=== PATIENT | female | born 1970 | race Caucasian/White ===

== ENCOUNTER → 2021-08-30 08:37 | Outpatient (CLI) | payer BC, SELFPAY ==
--- NOTE | ~2021-08-30 | MM_ITS ---
EXAMINATION: MM screening jo-ann BI w kellee HISTORY: Screening mammogram, family history of breast cancer in her sister. TECHNIQUE: Craniocaudal and mediolateral oblique 3-D tomosynthesis images were obtained and synthetic 2-D images were generated. CAD analysis was submitted and interpreted. COMPARISON: 03/31/2019, 02/01/2018, 12/29/2016 BREAST PARENCHYMAL COMPOSITION: The breasts are heterogeneously dense, which may obscure small masses . FINDINGS: Scattered benign-appearing calcifications are present. There is no evidence of suspicious m ass, calcification, or architectural distortion to suggest malignancy in either breast. There has bee n no suspicious interval change. IMPRESSION: 1. No mammographic evidence of malignancy. 2. Recommend routine screening mammography in one year. BI-RADS Category 2: Benign finding(s). Reviewed, dictated and finalized at location A.
== END ==
PROVIDERS: Visit Provider Obstetrics & Gynecology
DX: Z12.31 Encounter for screening mammogram for malignant neoplasm of breast (principal)
CPT/HCPCS: 77063; 77067

== ENCOUNTER 2022-08-06 19:11 | Emergency (ER) | payer BC, SELFPAY ==
--- NOTE | 2022-08-06 19:12 | ED.URI ---
HPI - URI/Sore Throat General Stated Complaint: Fatique Time Seen by Provider: 08/06/22 19:12 Source: patient Mode of arrival: ambulatory Limitations: no limitations History of Present Illness HPI Narrative: Ms. Marshall is a 51-year-old female patient presenting to the clinic today with complaints of fatigue x2 weeks. She reports she contacted her PCP today and they recommend she come into the urgent care to be evaluated. She states that she did not at home COVID test today and it was negative. She denies any fever or chills. She denies using any recreational drugs. She denies any new medications that she is taken. She denies having heavy menses although her periods are irregular. She denies any sore throat, chest pain, or shortness of breath. She denies any nausea vomiting or diarrhea. No history of any Leonidas's disease, thyroid disease, or vitamin deficiencies. She reports she is a diabetic and uses an insulin pump. Her sugars have been ranging 150s 160s. Related Data Home Medications Medication Instructions Recorded Confirmed insulin aspart U-100 100 unit/mL 1 unit subcut DIRECTED 08/06/22 08/06/22 subcutaneous solution (Novolog U-100 Insulin aspart) liraglutide 0.6 mg/0.1 mL (18 mg/3 0.6 mg subcut DIRECTED 08/06/22 08/06/22 mL) subcutaneous pen injector (Victoza 3-Javad) metformin 500 mg tablet 500 mg PO BID 08/06/22 08/06/22 pravastatin 10 mg tablet 10 mg PO DAILY 08/06/22 08/06/22 sertraline 100 mg tablet 100 mg PO DAILY 08/06/22 08/06/22 Allergies Allergy/AdvReac Type Severity Reaction Status Date / Time Penicillins Allergy Severe HIVES Verified 08/06/22 19:13 morphine AdvReac Severe FATIGUE,ACHEY, Verified 08/06/22 19:13 LETHARGIC codeine AdvReac Unknown N/V Verified 08/06/22 19:13 Review of Systems Review of Systems: Pertinent positives per HPI. Patient denies any fever, chills, rash, headache, visual changes, dizziness, cough, runny nose, sore throat, shortness of breath, chest pain, palpitations, nausea, vomiting, diarrhea, constipation, abdominal pain, or any urinary issues. PMFSH Comments At the time of my signature, I reviewed and agree with the nursing past medical, surgical, social, and family history. There is no relevant family history pertinent to the patient complaint. Exam Narrative: General: Well-developed, obese, in no apparent distress Head: Normocephalic, atraumatic Eyes: Pupils equally round and reactive to light bilaterally, EOM intact, sclera and conjunctive clear, no discharge, lids normal Ears: TMs intact and clear, ear canals clear, no drainage, grossly hearing normal. Nose: Nares patent, no discharge, no inflammation, no sinus tenderness. Mouth: Oropharynx without lesions or masses, good dentition, MMM. Neck: Supple, trachea midline, no enlargement of anterior or posterior cervical nodes, no thyroid masses or goiter palpable. No JVD Cardio: Regular rate and rhythm, s1 and s2 normal, no murmur appreciated. Resp: Clear to auscultation bilaterally anteriorly and posteriorly, no rhonchi, rales, wheezing or rubs Extremities: No deformity, 1+ pitting edema in the lower extremities bilaterally, no cyanosis, capillary refill less than 2 seconds, peripheral pulses palpable and strong. Integumentary: [place], warm, and dry, intact without lesion, no rashes. Course Course Emergency Course: Portions of this record may have been created with voice recognition software. Level of Care: Express Care Visit Vital Signs Vital signs: Vital signs reviewed MDM - URI/Sore Throat MDM Narrative Medical decision making narrative: At the time of visit patient is resting comfortably on the exam table. Patient had done at home COVID test today and it was negative. I do not see any sign of infection and her symptoms of been ongoing for 2 weeks so I do not see a reason to do strep testing or mono testing at this time. Recommend follow-up with her PCP tomorrow or call for o
[2022-08-06 19:23] VITALS: BP 136/67; PULSE 85; RESP 16; TEMP 37.6; O2SAT 99
== END 2022-08-06 19:48 | disposition home or self-care (01) ==
LOC: EXPCOLL 19:16
PROVIDERS: Emergency Provider Nurse Practitioner Family
DX: R53.83 Other fatigue (principal); E11.9 Type 2 diabetes mellitus without complications; Z79.4 Long term (current) use of insulin
CPT/HCPCS: 99211; G0463

== ENCOUNTER 2022-11-24 10:34 | Outpatient (CLI) | payer BC, SELFPAY ==
--- NOTE | ~2022-11-24 | MM_ITS ---
EXAMINATION: MM screening jo-ann BI w kellee HISTORY: Screening mammogram TECHNIQUE: Craniocaudal and mediolateral oblique 3-D tomosynthesis images were obtained and synthetic 2-D images were generated. CAD analysis was submitted and interpreted. COMPARISON: 08/30/2021, 03/31/2019, 02/01/2018 bilateral screening mammogram examinations BREAST PARENCHYMAL COMPOSITION: The breasts are heterogeneously dense, which may obscure small masses . FINDINGS: Scattered bilateral benign calcifications. There is no evidence of suspicious mass, calcifi cation, or architectural distortion to suggest malignancy in either breast. There has been no suspici ous interval change. IMPRESSION: 1. No mammographic evidence of malignancy. 2. Recommend routine screening mammography in one year. BI-RADS Category 2: Benign finding(s). Reviewed, dictated and finalized at location A. [employer]
== END 2022-11-24 10:35 | disposition home or self-care (01) ==
PROVIDERS: Visit Provider Physician Assistant
DX: Z12.31 Encounter for screening mammogram for malignant neoplasm of breast (principal)
CPT/HCPCS: 77063; 77067

== ENCOUNTER 2023-01-30 12:51 | Emergency (ER) | payer BC, SELFPAY ==
[2023-01-30 13:01] VITALS: BP 143/59; PULSE 84; RESP 16; TEMP 36.9; O2SAT 98
--- NOTE | 2023-01-30 13:35 | ED.URI ---
HPI - URI/Sore Throat General Chief Complaint: Upper Respiratory Infection Stated Complaint: Sinus Time Seen by Provider: 01/30/23 13:10 Source: patient Mode of arrival: ambulatory Limitations: no limitations History of Present Illness HPI Narrative: Twyla is a 52-year-old female patient presenting to clinic today with complaints of sinus congestion and cough times 2 weeks. She reports that she has had a lot of sinus pressure and postnasal drip. She denies any fever or chills but has had some headaches with constant coughing. She has been taking [id number] medications as well as she has taken some prednisolone 20 mg daily for 5 days without relief MD elicited complaint: cough, nasal congestion and sinus pain Related Data Home Medications Medication Instructions Recorded Confirmed insulin aspart U-100 100 unit/mL 1 unit subcut DIRECTED 08/06/22 01/30/23 subcutaneous solution (Novolog U-100 Insulin aspart) liraglutide 0.6 mg/0.1 mL (18 mg/3 0.6 mg subcut DIRECTED 08/06/22 01/30/23 mL) subcutaneous pen injector (Victoza 3-Javad) metformin 500 mg tablet 500 mg PO BID 08/06/22 01/30/23 pravastatin 10 mg tablet 10 mg PO DAILY 08/06/22 01/30/23 sertraline 100 mg tablet 100 mg PO DAILY 08/06/22 01/30/23 Allergies Allergy/AdvReac Type Severity Reaction Status Date / Time Penicillins Allergy Severe HIVES Verified 01/30/23 13:19 morphine AdvReac Severe FATIGUE,ACHEY, Verified 01/30/23 13:19 LETHARGIC codeine AdvReac Unknown N/V Verified 01/30/23 13:19 Review of Systems Review of Systems: Pertinent positives per HPI. Patient denies any fever, chills, rash, headache, visual changes, dizziness, cough, shortness of breath, chest pain, palpitations, nausea, vomiting, diarrhea, constipation, abdominal pain, or any urinary issues. PMFSH Comments At the time of my signature, I reviewed and agree with the nursing past medical, surgical, social, and family history. There is no relevant family history pertinent to the patient complaint. Exam Narrative: General: Well-developed, well nourished, in no apparent distress Head: Normocephalic, atraumatic Eyes: Pupils equally round and reactive to light bilaterally, EOM intact, sclera and conjunctive clear, no discharge, lids normal Ears: TMs intact, bulging, dull, ear canals clear, no drainage, grossly hearing normal. Nose: Nares patent, green nasal discharge, severe inflammation, maxillary and frontal sinus tenderness. Mouth: Oral pharynx without lesions or masses, good dentition, MMM. Postnasal drip Neck: Supple, trachea midline, no enlargement of anterior or posterior cervical nodes, no thyroid masses or goiter palpable. Cardio: Regular rate and rhythm, s1 and s2 normal, no murmur appreciated. Resp: Clear to auscultation bilaterally, no rhonchi, rales, wheezing or rubs Course Course Emergency Course: Portions of this record may have been created with voice recognition software. Level of Care: Express Care Visit Vital Signs Vital signs: Vital Signs Temperature 36.9 C 01/30/23 13:01 Pulse Rate 84 01/30/23 13:01 Respiratory Rate 16 01/30/23 13:01 Blood Pressure 143/59 H 01/30/23 13:01 Pulse Oximetry 98 01/30/23 13:01 Oxygen Delivery Room Air 01/30/23 13:01 Temperature 36.9 C 01/30/23 13:01 Pulse Rate 84 01/30/23 13:01 Respiratory Rate 16 01/30/23 13:01 Blood Pressure 143/59 H 01/30/23 13:01 Pulse Oximetry 98 01/30/23 13:01 Oxygen Delivery Room Air 01/30/23 13:01 Vital signs reviewed MDM - URI/Sore Throat MDM Narrative Medical decision making narrative: At the time of visit patient is resting comfortably on the exam table. I suspect patient has acute bacterial rhinosinusitis with paste nasal drip and eustachian tube dysfunction. Prescription for prednisone, Tessalon Perles, and doxycycline was sent to the pharmacy. Supportive measures were discussed with the patient she voiced understanding discharg
== END 2023-01-30 13:40 | disposition home or self-care (01) ==
PROVIDERS: Emergency Provider Nurse Practitioner Family
DX: J01.90 Acute sinusitis, unspecified (principal); B96.89 Other specified bacterial agents as the cause of diseases classified elsewhere; Z79.4 Long term (current) use of insulin
CPT/HCPCS: 99213; G0463

== ENCOUNTER 2024-03-21 09:10 | Emergency (ER) | payer BC, SELFPAY ==
--- NOTE | ~2024-03-21 | XR_ITS ---
EXAMINATION: XR nasal bones min 3V DATE: 03/21/2024 09:50 INDICATION: Nose pain. Fall. TECHNIQUE: 3 views of the nasal bones were obtained. COMPARISON: None. FINDINGS: There is leftward deviation of the nasal septum. No fracture. IMPRESSION: 1. No fracture. Reviewed, dictated and finalized at location E. IMPRESSION: 1. No fracture.
[2024-03-21 09:19] VITALS: BP 124/54; PULSE 83; RESP 16; TEMP 36.4; O2SAT 99
--- NOTE | 2024-03-21 09:23 | ED.HEATRA ---
HPI - Head Injury General Chief complaint: Unspecified Stated complaint: Nose Pain Time Seen by Provider: 03/21/24 09:12 Source: patient Mode of arrival: ambulatory Limitations: no limitations History of Present Illness HPI Narrative: Twyla is a 53-year-old female patient presenting to the clinic today with complaints of nasal bone pain. She reports she fell on Wednesday over a baby gate hitting her lip and nose on a he cat litter tub. Has bruising and mild swelling to the upper lip. Tenderness over the nasal bridge and septum. States she did have epistaxis at the time of the injury however that has discontinued. Related Data Home Medications Medication Instructions Recorded Confirmed insulin aspart U-100 100 unit/mL 1 unit subcut DIRECTED 08/06/22 01/30/23 subcutaneous solution (Novolog U-100 Insulin aspart) liraglutide 0.6 mg/0.1 mL (18 mg/3 0.6 mg subcut DIRECTED 08/06/22 01/30/23 mL) subcutaneous pen injector (Victoza 3-Javad) metformin 500 mg tablet 500 mg PO BID 08/06/22 01/30/23 pravastatin 10 mg tablet 10 mg PO DAILY 08/06/22 01/30/23 sertraline 100 mg tablet 100 mg PO DAILY 08/06/22 01/30/23 Allergies Allergy/AdvReac Type Severity Reaction Status Date / Time Penicillins Allergy Severe HIVES Verified 01/30/23 13:19 morphine AdvReac Severe FATIGUE,ACHEY, Verified 01/30/23 13:19 LETHARGIC codeine AdvReac Unknown N/V Verified 01/30/23 13:19 Review of Systems Review of Systems: Pertinent positives per HPI. Patient denies any fever, chills, rash, headache, visual changes, dizziness, cough, runny nose, sore throat, shortness of breath, chest pain, palpitations, nausea, vomiting, diarrhea, constipation, abdominal pain, or any urinary issues. PMFSH Comments At the time of my signature, I reviewed and agree with the nursing past medical, surgical, social, and family history. There is no relevant family history pertinent to the patient complaint. Exam Narrative: General: Well-developed, well nourished, in no apparent distress Head: Normocephalic, atraumatic Eyes: Pupils equally round and reactive to light bilaterally, EOM intact, sclera and conjunctive clear, no discharge, lids normal Ears: TMs intact and clear, ear canals clear, no drainage, grossly hearing normal. Nose: Nares patent, no discharge, mild inflammation, no epistaxis visualized, tenderness to palpation over the nasal bridge and septum, no visualized septal hematoma. Mouth: Oropharynx without lesions or masses, good dentition, MMM. Old bruising to the upper lip Neck: Supple, trachea midline, no enlargement of anterior or posterior cervical nodes, no thyroid masses or goiter palpable. Cardio: Regular rate and rhythm, s1 and s2 normal, no murmur appreciated. Resp: Clear to auscultation bilaterally anteriorly and posteriorly, no rhonchi, rales, wheezing or rubs Course Course Emergency Course: Portions of this record may have been created with voice recognition software. Level of Care: Express Care Visit Vital Signs Vital signs: Vital Signs Temperature 36.4 C 03/21/24 09:19 Pulse Rate 83 03/21/24 09:19 Respiratory Rate 16 03/21/24 09:19 Blood Pressure 124/54 L 03/21/24 09:19 Pulse Oximetry 99 03/21/24 09:19 Oxygen Delivery Room Air 03/21/24 09:19 Temperature 36.4 C 03/21/24 09:19 Pulse Rate 83 03/21/24 09:19 Respiratory Rate 16 03/21/24 09:19 Blood Pressure 124/54 L 03/21/24 09:19 Pulse Oximetry 99 03/21/24 09:19 Oxygen Delivery Room Air 03/21/24 09:19 Vital signs reviewed MDM - Head Injury MDM Narrative Medical decision making narrative: At the time of visit patient is resting comfortably on the exam table. Patient appears to be nontoxic. Diagnostics: Nasal bone x-rays performed and were negative for any sign of fracture or malalignment.. Plan: Supportive measures were discussed with the patient and they voiced understanding discharge instructions and a
== END 2024-03-21 10:05 | disposition home or self-care (01) ==
PROVIDERS: Emergency Provider Nurse Practitioner Family; PCP Family Medicine
DX: S00.531A Contusion of lip, initial encounter (principal); S00.33XA Contusion of nose, initial encounter; W18.09XA Striking against other object with subsequent fall, initial encounter; E78.00 Pure hypercholesterolemia, unspecified; E11.9 Type 2 diabetes mellitus without complications; Z79.4 Long term (current) use of insulin; Z96.41 Presence of insulin pump (external) (internal); Z79.84 Long term (current) use of oral hypoglycemic drugs; F32.A Depression, unspecified
CPT/HCPCS: 70160; 99213; G0463

== ENCOUNTER 2025-03-13 08:29 | Outpatient (CLI) | payer BC, SELFPAY ==
--- NOTE | ~2025-03-13 | MM_ITS ---
EXAMINATION: MM screening jo-ann BI w kellee HISTORY: Screening TECHNIQUE: Craniocaudal and mediolateral oblique 3-D tomosynthesis images were obtained and synthetic 2-D images were generated. CAD analysis was submitted and interpreted. COMPARISON: Comparison to multiple prior studies sequentially, with oldest reviewed study dated 12/09. BREAST PARENCHYMAL COMPOSITION: Dense: The breasts are heterogeneously dense, which may obscure small masses FINDINGS: There is no evidence of suspicious mass, calcification, or architectural distortion to sugg est malignancy in either breast. There has been no suspicious interval change. IMPRESSION: 1. No mammographic evidence of malignancy. 2. Recommend routine screening mammography in one year. BI-RADS Category 1: Negative Reviewed, dictated and finalized at location B.
--- OUTSIDE RECORDS SUMMARY | 2025-03-13 08:46 | XMS_ITS | Clinical Summary ---
Author Organization [facility] Scientific Revenue Address [address] [place] [address] Care Team Providers Care Hydrologic Modeler Name Role Phone Orlando Park MD Primary Care Provider [phone] Source Comments [facility] Affiliates and Associated Physician Practices is amultiple site organization consisting of ambulatory clinics and hospital sitesin [place], [place], [place] and [place]. This disclosure is being madepursuant to the Care Everywhere program and may not contain all information available regarding this patient. Last updated 18.[facility] [employer] Allergies Active Allergy Reactions Criticality Noted Date Comments Penicillins 01/04/2018 Medications * Be aware that medications may not be up to date on this document. Alwaysverify current medications with the patient. insulin glargine (LANTUS) vial Inject subcutaneously at bedtime Active insulin lispro (HUMALOG) 100 UNIT/ML vial Active estradiol (ESTRACE) 0.5 MG tablet Take 0.5 mg by mouth once daily Active medroxyPROGEST ERone (PROVERA) 2.5 MG tablet Take 2.5 mg by mouth once daily Active Glucosamine-Ch ondroitin (GLUCOSAMINE CHONDR COMPLEX PO) Active Social History Tobacco Use Types Packs/Day Years Used Date Smoking Tobacco: Never Smokeless Tobacco: Never Alcohol Use Standard Drinks/Week Comments Yes 0 (1 standard drink = 0.6 oz pur e alcohol) Comments No Sex and Gender Information Value Date Recorded Sex Assigned at Not on file Legal Sex Female 8:05 AM SPORTS RECRUITER Gender Identity Not on file Sexual Orientation Not on file Last Filed Vital Signs Vital Sign Reading Time Taken Comments Blood Pressure 118/72 01/04/2018 10:15 AM SPORTS RECRUITER Pulse 90 01/04/2018 10:15 AM SPORTS RECRUITER Temperature - - Respiratory Rate 15 01/04/2018 10:15 AM SPORTS RECRUITER Oxygen Saturation 94% 01/04/2018 10:15 AM SPORTS RECRUITER Inhaled Oxygen Concentration - - Weight 95.3 kg (210 lb) 01/04/2018 9:03 AM SPORTS RECRUITER Height 162.6 cm (5' 4 ) 01/04/2018 9:03 AM SPORTS RECRUITER Body Mass Index 36.05 01/04/2018 9:03 AM SPORTS RECRUITER Plan of Treatment Health Maintenance Due Date Last Done Comments COLOGUARD (AGES 45-75) - COL ON CA SCREENING 1972 CT COLONOGRAPHY - COLON CA SCREENING 1972 FIT - COLON CA SCREENING 1972 FLEX SIG - COLON CA SCREENING 1972 LIPID TESTING 1972 MAMMOGRAM 1972 HIV SCREENING 1987 HEPATITIS C SCREENING 10/04/1990 DTAP/TDAP/TD VACCINES (1 - Tdap) 1991 HEPATITIS B VACCINE (1 of 3 - 19+ 3-dose series) 1991 PNEUMOCOCCAL VACCINE 50+ (1 of 1 - PCV) 2022 ZOSTER VACCINE (1 of 2) 2022 COVID-19 VACCINE ( - 2023-2 5 season) 2024 DEPRESSION SCREENING 11/29/2024 INFLUENZA VACCINE (Season Ended) 2025 COLON MONITORING 01/04/2028 01/04/2018, 01/04/2018 COLONOSCOPY - COLON CA SCREENING 01/04/2028 01/04/2018, 01/04/2018 Colorectal Cancer Screening 01/04/2028 HIB VACCINE Aged Out No longer eligi ble based on patient's age to complete this topic HPV VACCINE Aged Out No longer eligi ble based on patient's age to complete this topic MENINGOCOCCAL (Group B) VACCINE SHARED DECISION-MAKING Aged Out No longer eligible based on patient's age to complete this topic MENINGOCOCCAL GROUPS A/C/Y/W VACCINE Aged Out No longer eligible b ased on patient's age to complete this topic Procedures Procedure Name Priority Date/Time Associated Diagnosis Comments ENDOSCOPY, COLON, SCREENING Routine 01/04/2018 9:15 AM SPORTS RECRUITER from Last 3 Months or Most Recently Relevant to Health Maintenance Results * ENDOSCOPY, COLON, SCREENING (01/04/2018 9:15 AM SPORTS RECRUITER) Report Endoscopy POC _ Patient Name: Twyla Marshall Procedure Date: 01/04/2018 9:15 AM Date of : 1970 Admit Type: Outpatient Age: 47 Gender: Female Attending MD: Felipe Sullivan MD _ Procedure: Colonoscopy Indications: Rectal bleeding Providers: Felipe Sullivan MD (Doctor), Heather Torres RN, Minerva Lion Referring MD: Orlando Park MD (Referring MD) Medicines: Midazolam 7 mg IV, Fentanyl 100 micrograms IV Complications: No immediate complications. _ Procedure: Pre-Anesthesia Assessment: - Prior to the procedure, a History and Physical was performed, and patient medications and allergies were reviewed. The patient is competent. The risks and benefits of the procedure and the sedation options and risks were discussed with the patient. All questions were answered and informed consent was obtained. Patient identification and proposed procedure were verified by the physician and the nurse in the procedure room. Mental Status Examination: alert and oriented. Airway Examination: normal oropharyngeal airway and neck mobility. Respiratory Examination: clear to auscultation. CV Examination: normal. Prophylactic Antibiotics: The patient does not require prophylactic antibiotics. Prior Anticoagulants: The patient has taken no previous anticoagulant or antiplatelet agents. ASA Grade Assessment: I - A normal, healthy patient. After reviewing the risks and benefits, the patient was deemed in satisfactory condition to undergo the procedure. The anesthesia plan was to use moderate sedation / analgesia (conscious sedation). Immediately prior to administration of medications, the patient was re-assessed for adequacy to receive sedatives. The heart rate, respiratory rate, oxygen saturations, blood pressure, adequacy of pulmonary ventilation, and response to care were monitored throughout the procedure. The physical status of the patient was re-assessed after the procedure. After I obtained informed consent, the scope was passed under direct vision. Throughout the procedure, the patient's blood pressure, pulse, and oxygen saturations were monitored continuously. The Colonoscope was introduced through the anus and advanced to the cecum, identified by appendiceal orifice and ileocecal valve. The colonoscopy was performed without difficulty. The patient tolerated the procedure well. The quality of the bowel preparation was good. Impression: - Non-bleeding internal hemorrhoids. - The examination was otherwise normal on direct and retroflexion views. - No specimens collected. Findings: The perianal and digital rectal examinations were normal. Pertinent negatives include normal sphincter tone. Non-bleeding internal hemorrhoids were found during retroflexion. The hemorrhoids were moderate. The exam was otherwise without abnormality on direct and retroflexion views. _ Recommendation: - Discharge patient to home (ambulatory). - Use fiber, for example Citrucel, Fibercon, Konsyl or Metamucil. - Preparation H suppository: Insert rectally daily for 1 week. Procedure Code(s): --- Professional --- 84963, Colonoscopy, flexible; diagnostic, including collection of specimen(s) by brushing or washing, when performed (separate procedure) --- Technical --- 03061, Colonoscopy, flexible; diagnostic, including collection of specimen(s) by brushing or washing, when performed (separate procedure) Diagnosis Code(s): --- Professional --- K64.8, Other hemorrhoids K62.5, Hemorrhage of anus and rectum --- Technical --- K64.8, Other hemorrhoids K62.5, Hemorrhage of anus and rectum CPT copyright 2015 [employer]. All rights reserved. The codes documented in this report are preliminary and upon chalk cutter review may be revised to meet current compliance requirements. Felipe Sullivan MD 01/04/2018 9:51:35 AM This report has been signed electronically. Number of Addenda: 0 Note Initiated On: 01/04/2018 9:15 AM [facility] ENDOSCOPY 01/04/2018 9:15 AM SPORTS RECRUITER Felipe Sullivan MD GI PROCEDURE ORDERABLES Edited Result - Final [facility] ENDOSCOPY from Last 3 Months or Most Recently Relevant to Health Maintenance Insurance Care Teams Hydrologic Modeler Relationship Specialty Start Date End Date Orlando Park MD PCP - General Internal Medicine 01/04/18
--- OUTSIDE RECORDS SUMMARY | 2025-03-13 08:47 | XMS_ITS | Referral Summary ---
Author Organization [facility] Address [address] [place] [address] Care Team Providers Care Folder And Notcher Name Role Phone Filippo Rosales MD Unavailable [phone] Nathalie Fitzgerald MD Unavailable [phone] Khanh Ramsey MD Primary Care Provider Encounters Date Type Department Care Team Description 01/30/2025 9:00 AM REINSURANCE CLAIM ANALYST Telemedicine [facility] Endocrinology Metabolism and Lipid [address] [facility] [address] [place] [address] [place] [address] Nathalie Fitzgerald MD Type 1 diabetes mellitus without complication (HCC) (Primary Dx); Screening for hypothyroidism; Encounter for vitamin deficiency screening; Screening for hyperlipidemia; Screening for deficiency anemia; Diabetes mellitus with features of insulin resistance (HCC); Class 1 obesity due to excess calories with serious comorbidity and body mass index (BMI) of 32.0 to 32.9 in adult; Type 1 diabetes mellitus with hyperglycemia (HCC); Vitamin D deficiency; Type 2 diabetes mellitus without complication, with long-term current use of insulin (HCC); Mixed hyperlipidemia from Last 3 Months Allergies Active Allergy Reactions Criticality Noted Date Comments Codeine Nausea & Vomiting Low Morphine Hallucinations Medium Penicillin Hives Medium 09/23/2023 Penicillins Hives Medium Medications glucosamine-lona droitin 500-400 mg capsule Take by mouth. Acti ve ONETOUCH DELICA LANCETS 33 gauge misc 8 Active potassium gluconate 595 mg (99 mg) tablet extended release Take by mouth 4 (four) times a day Active magnesium gluconate (MAGONATE) 27.5 mg magne- sium (500 mg) tabletIndication s:hypomagnesemia Take 1 tablet (500 mg total) by mouth daily Active pen needle, diabetic 31 gauge x 5/16 needleIndication s:Type 1 diabetes mellitus without complication (HCC) USE TO INJECT INSULIN 4 TIMES PER DAY 100 each 14 0 Active blood-glucose meter kit One Touch Verio Reflect - Use to test blood sugar as directed. 1 each 0 Active aspirin 81 mg enteric coated tablet Take 1 tablet (81 mg total) by mouth daily 30 tablet 11 1 Active naproxen (NAPROSYN) 500 mg tablet Take 1 tablet (500 mg total) by mouth 2 (two) times a day as needed (pain or swelling) 20 tablet 1 Active pen needle, diabetic 31 gauge x 3/16 needle Use to inject Victoza 1 time per day. 100 each 2 2 Active metFORMIN (GLUCOPHAGE) 500 mg tabletIndication s:Type 1 diabetes mellitus without complication (HCC) TAKE 2 TABLETS BY MOUTH TWICE A DAY WITH MEALS 360 tablet 3 4 Active albuterol 2.5 mg /3 mL (0.083 %) nebulizer solution INHALE 3 ML BY NEBULIZATION EVERY 6 HOURS NEEDED FOR WHEEZING 75 mL 4 Active insulin aspart (NovoLOG) 100 unit/mL vial for injectionIndicat ions:Type 1 diabetes mellitus without complication (HCC) INJECT UP TO 110 UNITS PER DAY VIA INSULIN PUMP DIRECTED 100 mL 3 4 Active atomoxetine (STRATTERA) 80 mg capsule TAKE 1 CAPSULE BY MOUTH EVERY DAY IN THE MORNING FOR 90 DAYS Active fluticasone propionate (FLONASE) 50 mcg/actuation nasal spray SPRAY 2 SPRAYS INTO EACH NOSTRIL DAILY -AFTER 1 WEEK MAY USE 1-2 SPRAY INTO EACH NOSTRIL DAILY Active vitamin E 400 unit capsule Take 1 capsule every day by oral route. 4 Active albuterol HFA (PROVENTIL HFA,VENTOLIN HFA,PROAIR HFA) 90 mcg/actuation inhalerIndicatio ns:Acute Asthma Attack Inhale 2 puffs every 4 (four) hours as needed for shortness of breath 6.7 each 1 4 Active sertraline (ZOLOFT) 100 mg tabletIndication s:NASIR (generalized anxiety disorder),Mild episode of recurrent major depressive disorder Take 1 tablet (100 mg total) by mouth daily 90 tablet 3 4 Active Dexcom G7 Sensor deviceIndication s:Type 1 diabetes mellitus without complication (HCC) Dexcom G7. Change every 10 days 9 each 3 4 Active propranoloL (INDERAL) 10 mg tablet 4 Active estradioL (Estrace) 0.01 % (0.1 mg/gram) vaginal cream Insert one gram vaginally 2 times per week (such as Wednesday/) 42.5 g 1 4 Active glucagon (Baqsimi) 3 mg/actuation spray,non-aeroso l Administer 1 spray (3 mg total) into one nostril as needed (for use in case of emergency for hypoglycemia) 1 each 2 4 Active tirzepatide (Mounjaro) 12.5 mg/0.5 mL pen injectorIndicati ons:type 2 diabetes mellitus Inject 12.5 mg under the skin once a week 2 mL 11 4 Active pravastatin (PRAVACHOL) 20 mg tabletIndication s:Mixed hyperlipidemia,T ype 1 diabetes mellitus without complication (HCC) Take 1 tablet (20 mg total) by mouth daily 90 tablet 3 4 Active trospium XR (SANCTURA XR) 60 mg capsule,extended release 24hrIndications: Mixed stress and urge urinary incontinence TAKE 1 CAPSULE BY MOUTH EVERY DAY 90 capsule 5 Active Active Problems Problem Noted Date Diagnosed Date Incomplete uterovaginal prolapse 08/18/2024 Mixed stress and urge urinary incontinence 08/18 Rectocele 08/18/2024 Pelvic floor dysfunction in female 08/18/2024 Cystocele, midline 08/18/2024 Attention deficit hyperactiv ity disorder (ADHD), combined type 08/16/2024 Overview (08/27/2024): - managed via psychiatry - online [facility] Assessment & Plan (08/16/2024 9:42 AM CDT): - chronic condition, well controlled - diagnosed in adulthood - managed via psychiatry - online [facility] - currently strattera 80 mg daily - continue management per psychiatry Type 2 diabetes mellitus wit hout complication, with long-term current use of insulin 08/16/2024 Type 1 diabetes mellitus with hyperglycemia 01/28 Diabetes mellitus with features of insulin resis tance 04/18/2023 Assessment & Plan (04/18/2023 6:27 PM CDT): At her last visit, we attempted to start Twyla on Mounjaro, given her prior failure of victoza, trulicity and ozempic (nausea, abdominal bloating, persistent insulin resistance with high insulin requirements of 104.86 units/day, on average, which is equivalent to >1 unit/kg/day. Would benefit from Mounjaro to help reduce insulin requirements and help with glycemic excursions. Mild persistent asthma without complication 01/2023 Assessment & Plan (08/16/2024 9:54 AM CDT): - chronic condition, stable status - currently on Albutreol inhaler PRN - triggers are allergies - uses flonase nasal spray - continue current management Assessment & Plan (09/22/2023 12:54 PM CDT): Continue with albuterol inhaler Assessment & Plan (12/01/2022 1:55 PM REINSURANCE CLAIM ANALYST): Continue with albuterol inhaler alf current use of insulin 11/03/2022 Assessment & Plan (01/23/2023 4:03 PM REINSURANCE CLAIM ANALYST): Requires close clinical follow up for BG review and insulin titration Abnormal stress echo 01/16/2021 Overview (01/16/2021): Added automatically from request for surgery [id number] Insulin pump in place 01/08/2021 Assessment & Plan (01/23/2023 4:02 PM REINSURANCE CLAIM ANALYST): Has good working knowledge of insulin pump use Assessment & Plan (04/16/2021 11:53 AM CDT): Has good working knowledge of insulin pump use Changes as below Assessment & Plan (01/08/2021 1:40 PM REINSURANCE CLAIM ANALYST): Has good knowledge of insulin pump use Continue current settings for now Has UTD glucagon pen OAB (overactive bladder) 05/02/2020 Assessment & Plan (09/23/2023 2:23 PM CDT): She cut back on the tea myrbetriq not covered by insurance and oxybutynin no longer works Assessment & Plan (12/01/2022 2:09 PM REINSURANCE CLAIM ANALYST): worsening Referral to urology given myrbetriq not covered by insurance and oxybutynin no longer works Assessment & Plan (05/02/2020 3:17 PM CDT): Discussed/ordered labs, Condition is worsening encouraged healthy, low carbohydrate lifestyle and at least 150min/week of exercise, we will start pt on oxybutynin 5mg daily. Push water. Discussed with patient that she should follow up with her DOCUMENTATION SPEC as her prolapsed vaginal wall may be causing a bladder prolapse and may be the cause of her worsening symptoms. She stated understanding and will schedule appointment. Mixed hyperlipidemia 10/30/2019 Assessment & Plan (08/16/2024 9:43 AM CDT): - chronic condition - status: is adequately controlled. - current management/medications: Pravastatin 10 mg daily, refill provided - other comorbid conditions: T1DM - patient is compliant with medications. - most recent LDL as shown below - maintain a healthy weight, diet - will monitor closely - continue current management Lab Results Component Value Date LDLCALC 75 08/14/2019 Lab Results Component Value Date ALT 10 02/16/2024 AST 10 02/16/2024 ALKPHOS 59 02/16/2024 BILITOT 0.5 02/16/2024 Assessment & Plan (09/23/2023 2:22 PM CDT): Continue pravastatin stable Assessment & Plan (04/18/2023 6:26 PM CDT): Continue statin Assessment & Plan (12/01/2022 1:53 PM REINSURANCE CLAIM ANALYST): Continue pravastatin stable Assessment & Plan (07/20/2022 9:41 AM CDT): -Last labs datd 05/15/22 : TC 135, trig 111, HDL 42, LDL 74 -Will continue statin as it is being tolerated without side effects Assessment & Plan (04/22/2022 5:27 PM CDT): -Last LDL was 77 in January 2021 -Will continue statin as it is being tolerated without side effects -Will repeat lipid panel Assessment & Plan (01/23/2022 11:30 AM REINSURANCE CLAIM ANALYST): -Last LDL was 77 in January 2021 -Will continue statin as it is being tolerated without side effects Assessment & Plan (04/16/2021 11:53 AM CDT): Continue statin and follow lipids Assessment & Plan (01/08/2021 1:40 PM REINSURANCE CLAIM ANALYST): Continue statin Check FLP Mild episode of recurrent major depressive disor legih 08/14/2019 Assessment & Plan (08/27/2024 12:23 AM CDT): - chronic condition, stable status - known conditions of anxiety, depression - currently on sertraline 100 mg daily - also follows/sees a counselor - continue current management Assessment & Plan (09/22/2023 12:53 PM CDT): Stable -SI/HI Report to ER SI or HI occur Continue sertraline 100mg daily NAISR (generalized anxiety disorder) 08/14/2019 Assessment & Plan (08/27/2024 12:23 AM CDT): - chronic condition, stable status - known conditions of anxiety, depression - currently on sertraline 100 mg daily - also follows/sees a counselor - continue current management Assessment & Plan (09/22/2023 12:53 PM CDT): Stable Continue sertraline 100mg daily High risk medication use 08/08/2019 Assessment & Plan (01/08/2021 1:38 PM REINSURANCE CLAIM ANALYST): Has CGM, using control IQ insulin pump closed loop system. Denies hypoglycemia Assessment & Plan (05/07/2020 2:09 PM CDT): Has CGM, using control IQ insulin pump closed loop system. Denies hypoglycemia Assessment & Plan (08/08/2019 1:32 PM CDT): High risk medication: requires intensive, high risk insulin regimen, with intensive glycemic monitoring. Increased risk of hypoglycemia in the context of insulin resistance and variable po intake Early menopause 08/08/2019 Assessment & Plan (08/08/2019 1:40 PM CDT): She is on hormone replacement. 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 Will obtain a pituitary MRI. Vitamin D deficiency 04/13/2019 Assessment & Plan (08/16/2024 9:45 AM CDT): - chronic condition - also followed by endocrinology - on supplementation daily 5000 International units daily - check most recent labs Lab Results Component Value Date 25HYDROVITD 40 08/14/2019 Assessment & Plan (01/23/2023 3:56 PM REINSURANCE CLAIM ANALYST): Follow levels and replete accordgingly Assessment & Plan (04/22/2022 5:27 PM CDT): -Repeat level Assessment & Plan (04/16/2021 11:51 AM CDT): Continue to monitor regularly and replete accordingly Assessment & Plan (01/08/2021 1:39 PM REINSURANCE CLAIM ANALYST): Check levels Assessment & Plan (05/07/2020 2:10 PM CDT): Will follow levels Assessment & Plan (04/13/2019 9:06 AM CDT): Continue Vitamin D Umbilical hernia without obstruction and without gangrene 05/26/2018 Assessment & Plan (08/16/2024 10:05 AM CDT): - chronic condition - has been evaluated in past but held off on surgery - discussed warning signs - she will think about surgical options Assessment & Plan (05/26/2018 11:45 AM CDT): Will plan OR Class 1 obesity due to exces s calories with serious comorbidity and body mass index (BMI) of 32.0 to 32.9 in adult 05/26/2018 Assessment & Plan (08/16/2024 9:47 AM CDT): Wt Readings from Last 3 Encounters: 08/16/24 86.3 kg (190 lb 4.8 oz) 06/20/24 85 kg (187 lb 6.4 oz) 06/15/24 90.3 kg (199 lb) Body mass index is 32.65 kg/m . - chronic condition, not at goal --> but has had significant weight loss since she has been on GLP 1 medications for diabetes (currently on Mounjaro from endocrinology) - BMI Follow-up includes: nutrition counseling, exercise counseling and education provided - Recommend to exercise at least 30 minutes moderate to vigorous exercise most days of the week. (minimum 150 minutes weekly) Assessment & Plan (04/18/2023 6:26 PM CDT): Lifestyle modifications GLP-1RA to reduce insulin requirements Assessment & Plan (01/23/2023 4:02 PM REINSURANCE CLAIM ANALYST): Will transition GLP-1RA to Mounjaro for more efficacy Assessment & Plan (06/11/2022 4:53 PM CDT): Healthy, low carbohydrate lifestyle and exercise for 150min/week recommended Assessment & Plan (05/18/2022 1:38 AM CDT): HPI: Condition is not at/near goal goal BMI <30 A&P: Healthy, high-protein, lower carbohydrate, lower fat lifestyle and exercise for 150min/week recommended Recommend tracking everything you put in your mouth on an linda like [employer]izdom Lower carb substitutions: Radha carries a zero net carb bread If you are looking for whole potatoes, like to use in soup or new potato shape/flavor, radishes are a great replacement If you are looking for mashed potatoes, riced cauliflower in the frozen bag section are a great replacement For pasta, try using zucchini noodles, lay them out on a cookie sheet and pat dry with a tea towel to try to remove as much moisture as possible. Heat your pasta sauce on the stove and put the noodles in for 30-45 seconds. If you leave them in much longer they will become mushy [place] and/or coconut flour instead of regular flour For pizza dough, try fathead pizza dough recipe online. To get a crispy crust, bake on one side for 8-12 min, then flip over and bake on the other side for 8-12 min, then put toppings on and bake until the cheese on top of pizza melts chaffles recipe online For ice cream, try the brand Enlightened To replace coffee creamer and make it low carb, use heavy creamer with sugar free Torani sweetener For chips, try Whisps or pork rinds For yogurt, try Two Good [place]ian yogurt Use Boy for recipe ideas. Type in low carb... Hand Measurements: A fist or cupped hand = 1 cup 1 cup = 1 -2 servings of fruit juice 1 oz. of cold cereal 2 oz. of cooked cereal, rice or pasta 8 oz. of milk or yogurt A thumb = 1 oz. of cheese Consuming low-fat cheese helps you meet the required servings from the milk, yogurt and cheese group. 1 oz. of low-fat cheese counts as 8 oz. of milk or yogurt. Handful = 1-2 oz. of snack food Thumb tip = 1 teaspoon Keep high-fat foods, such as peanut butter and mayonnaise, at a minimum. One teaspoon is equal to the end of your thumb, from the knuckle up. Three teaspoons equals 1 tablespoon. Palm = 3 oz. of meat Choose lean poultry, fish, shellfish and beef. One palm size portion equals 3 oz. for an adult and 1 -2 oz. for a child under 5. 1 tennis ball or a fist= 1/2 cup of fruit and vegetables Healthy diets include a variety of colorful fruits and vegetables every day. The secret to serving size is in your hand. Snacking can add up. Remember, 1 handful equals 1 oz. of nuts and small candies. For chips and pretzels, 2 handfuls equals 1 oz. Because hand sizes vary, compare your fist size to an actual measuring cup. Assessment & Plan (04/16/2021 11:54 AM CDT): Continue to lower carbs, aim for < 100 grams/day to reduce insulin requirements and help with weight loss Good water intake Start GLP-1RA Assessment & Plan (01/08/2021 1:38 PM REINSURANCE CLAIM ANALYST): Will aim for a low carb diet, food list sent via [employer], and discussed apps to track carbs/calories Will try to add Symlin with dinner to help decrease insulin requirements. Did not tolerate GLP-1RA Assessment & Plan (05/07/2020 2:12 PM CDT): Metformin has been added to help decrease insulin requirements. Would also improve water intake and decrease carbs. Assessment & Plan (05/02/2020 3:18 PM CDT): Healthy, low carbohydrate lifestyle and exercise for 150min/week recommended Assessment & Plan (01/26/2020 3:34 PM REINSURANCE CLAIM ANALYST): Healthy, low carbohydrate lifestyle and exercise for 150min/week recommended Assessment & Plan (08/08/2019 1:31 PM CDT): Low carb diet, increase water intake, intermittent fasting Added metformin. Will add liraglutide after that to help decrease insulin requirements. Exercise as able Assessment & Plan (05/26/2018 11:45 AM CDT): Pt given weight loss plan Female genital prolapse 02/23/2017 Assessment & Plan (08/16/2024 9:39 AM CDT): - chronic condition - has an appointment with uro-gynecology in 2 days - previous followed with gynecology - has urinary urgency Assessment & Plan (05/02/2020 3:17 PM CDT): Discussed with patient that she should follow up with her DOCUMENTATION SPEC as her prolapsed vaginal wall may be causing a bladder prolapse and may be the cause of her worsening symptoms. She stated understanding and will schedule appointment. Type 1 diabetes mellitus without complication Assessment & Plan (09/22/2023 7:18 AM CDT): The patient was counseled on a heart-healthy, diabetic-friendly diet, as well as life-style modification. Education provided on the diagnosis and risks of the disease. We will continue to monitor routine labs. Additionally, She was counseled on routine diabetic eye exams, foot exams, and other preventive care. Most recent A1c on file: Lab Results Component Value Date HGBA1C 6.6 12/30/2022 Continue current regimen Continue following with endocrinology F/u in 6 months Assessment & Plan (04/18/2023 6:25 PM CDT): Continue current insulin regimen with closed loop system. Has high insulin requirements: At her last visit, we attempted to start Twyla on Mounjaro, given her prior failure of victoza, trulicity and ozempic (nausea, abdominal bloating, persistent insulin resistance with high insulin requirements of 104.86 units/day, on average, which is equivalent to >1 unit/kg/day. Continue CGM Follow up with ophtho as scheduled Continue statin Assessment & Plan (01/23/2023 4:00 PM REINSURANCE CLAIM ANALYST): Excellent glycemic control using the current Control-IQ system, with A1c at goal. We discussed the following with written instructions provided: - Please obtain Mounjaro 2.5 mg weekly and take for 4 weeks, let me know at 1-2 weeks how you are doing, so I can send in the next dose Please print out the savings card for your email and use it when you pickling solution maker the medication; they may have to run it as secondary insurance - STOP victoza - If you are NOT able to get it, we will continue the victoza - if you can start the Mounjaro, please change your insulin pump settings as follows: - Basal: please decrease from 1.5 to 1.3 units/hr - Bolus: loosen carb ratio to 1:6 and please keep current correction at 1:20 Let me know how you do in that first week - In the event of pump failure: - Lantus 36 units once daily - Use Humalog/Novolog to give insulin 1:5 carb ratio for meals or snacks and correction of 1:20 > 140 every 3-4 hours or with meals Labs at [facility] when able Continue CGM Follow up with dilated eye exam as scheduled On statin Assessment & Plan (12/01/2022 1:54 PM REINSURANCE CLAIM ANALYST): Last a1c was 6.7 Continue following with endocrinology Assessment & Plan (11/03/2022 5:24 PM REINSURANCE CLAIM ANALYST): Time in Target Range is 59%, not at goal. Continue using Dexcom + Tandem insulin pump for integrated technology. She is tolerating metformin 2,000mg and Victoza 1.2 mg well and without side effects at this time. She did not want to make any insulin pump setting changes today. Recommend turning on Sleep Mode. She plans to make diet and lifestyle changes to help better manage BG. Assessment & Plan (07/22/2022 11:00 AM CDT): -Currently taking Victoza. metformin and using Tandem insulin pump with Dexcom, with Control IQ -A1C on 07/22/22 was 6.7% - Dexcom download indicates some post meal excursions mostly due to timing of boluses. For now, will continue same pump settings, and will continue to work on accuracy of carb counting and taking bolus prior to meal. Will follow with her response. -Advised to call with any concerns/complaints regarding glucose readings -Eye exam is up to date Assessment & Plan (04/22/2022 5:25 PM CDT): -Currently taking Victoza. metformin and using Tandem insulin pump with Dexcom, with Control IQ -A1C on 04/22/22 was 6.8% -Dexcom download indicates a relatively stable glucose pattern with some post meal variability. Due to her complaints of significant decrease in appetite and bloating, will hold Victoza and follow with her response. If this does not improve her symptoms, she will follow-up with primary care provider. -Advised to call with any concerns/complaints regarding glucose readings -Eye exam is up to date Assessment & Plan (01/23/2022 11:30 AM REINSURANCE CLAIM ANALYST): -Currently taking Victoza. metformin and using Tandem insulin pump with Dexcom, with Control IQ -Dexcom download indicates occasional post meal glucose spikes. She states this is due to the timing of her bolus. Will continue same pump settings, and will continue to work on bolusing prior to meals. -Discussed diet and activity modifications. -Advised to call with any concerns/complaints regarding glucose readings -Eye exam is up to date Assessment & Plan (04/16/2021 11:53 AM CDT): Good glycemic control with reduction in carb intake and insulin requirements. We discussed the following, with written instructions sent via [employer]: Dose insulin 5-10 minutes prior to meals, when able, and we decrease active insulin time (insulin duration, insulin on board time) from 3.5 to 3 hours. Start victoza, per instructions (on script sent). Can switch it to night time and advance by clicks in stead of whole dose increments if you have nausea. Eating smaller meals, less fatty meals, and eating fresh annelise, can help with nausea. If you see sugars on victoza go down to < 80, consistently, please loosen your carb ratio from 1:6 to 1:8, your correction from 1:20 to 1:25, and increase insulin duration time back to 3.5 hours. Continue closed loop system Follow up with ophtho as previously scheduled Continue statin Assessment & Plan (01/08/2021 1:39 PM REINSURANCE CLAIM ANALYST): Improving glycemic control in Control IQ closed loop system Continue current settings for now Continue metformin Aim to decrease daily carbs from 300 --> 200 grams Add Symlin with dinner Upload insulin pump/CGM data in 2 weeks and let me know to review, may need to tighten carb [facility] to [facility] Labs as below Assessment & Plan (05/07/2020 2:12 PM CDT): Check A1C. Most of BG in range. Will continue current insulin pump settings but tighten carb ratio to 1:4.5. Consider lowering carb intake to decrease insulin requirements and help with weight loss. Continue metformin, statin Labs as below Follow up with ophtho as previously scheduled Foot RN at next visit Assessment & Plan (08/08/2019 1:31 PM CDT): A1C is improved, but remains slightly above goal with insulin resistance. Recommended the following, with written instructions provided: 1. Start metformin 500 mg once daily. Take with breakfast. After 4-5 days, add a second tablet at dinner. After 4-5 days add another tablet at breakfast, and after 4-5 days increase so that you are taking two tablets with breakfast and two tablets with dinner. 2. Please check sugars 4x/day in the next 1-2 weeks and let me know the numbers. You can take a picture of the log and send via [employer] or you can fax the glucose log to me 3. Read The Obesity Code by Dr. Rosalio Hubbard about intermittent fasting, but don't try Yet. Need more glycemic data 4. Let me know how you do with metformin and we may start Victoza. Victoza is best tolerated if you eat smaller, less fatty meals while your body is getting used to it. Some people take it at night so that they feel less nausea. You can increase the dose by clicks (in between 0.6, 1.2, 1.8). 6. Once you obtain the dexamethasone tablet and have my order for cortisol, take dexamethasone at bedtime and have your cortisol drawn the following morning 8-10 AM [facility] Assessment & Plan (04/13/2019 9:27 AM CDT): The patient has type 1 diabetes, using multiple daily injections for her diabetes management. Her hemoglobin A1c improved from 8.6% to 7.8% at today's visit of April 13, 2019. For now, will continue Tresiba and Fiasp. She will be getting her insulin pump this summer, most likely in April. Advised when she receives her pump to make an appointment with the educators to come in for training. For now she will continue to focus on increasing her activity, limiting carb intake and counting carbohydrates. Labs from December 2018 were reviewed and are up-to-date. Therefore no labs were ordered at today's visit. She will return for scheduled follow-up with Dr. Fitzgerald in June 2019. Assessment & Plan (01/13/2019 10:17 AM REINSURANCE CLAIM ANALYST): The patient has history of type 1 diabetes with inadequate glycemic control. A1C at today's visit of 01/13/19 was 8.6%. Her home glucose readings have been in the 200-300 mg/dl range with many readings in the 400's as well. She is interested in going back on an insulin pump if adhesive sensitivity can be overcome. She is currently using Regular insulin as she thought Humalog might have caused palpitations. Anticipate better control with a fast acting insulin compared to Regular. Also discussed CGM, which will also likely improve her glycemic management as she will have more data to help her make day to day adjustments to her insulin and lifestyle. She will be seeing diabetes education today for further recommendations regarding pump/sensor choice. Will change her Basaglar to Tresiba and continue 50 units at hs. Will change Regular to Fiasp, and will adjust doing to be based on carb counting and correction. Will order labs as noted below. She will follow up with me in 3 months and will see Dr. Fitzgerald in 6 months. Resolved Problems Problem Noted Date Diagnosed Date Resolved Date Constipation 12/14/2023 08/16/2024 Assessment & Plan (12/14/2023 8:01 AM REINSURANCE CLAIM ANALYST): Acute on chronic problem-this is a recurring problem-poorly controlled with current regimen Ordered Miralax- take 17 grams with 6 ounces water or juice BID x 2 days then daily prn for constipation Encouraged to use OTC suppository or fleets enema to help relieve constipation by working by oral and rectal route together Encouraged to apply Vaseline petroleum jelly to rectum to help add comfort while trying to pass hard, formed stool. Follow up as scheduled-sooner prn if no results in 2 days Will plan to order abdominal x-ray if no improvement Recommend scheduling appointment with GI if no improvement in 2 days Continue to monitor Seek ER if problem worsens and starts experiencing N/V, abdominal pain Encouraged to avoid digital impaction removal Device fitting or adjustment 11/30/2023 08/16/2024 Poor concentration 09/23/2023 Assessment & Plan (09/23/2023 4:49 PM CDT): New concern Not at goal Referral to psychiatry given for evaluation Class 1 obesity due to exces s calories with body mass index (BMI) of 34.0 to 34.9 in adult 09/23/2023 08/16/2024 Assessment & Plan (09/23/2023 4:50 PM CDT): She was counseled on the importance of maintaining a healthy weight and the risks of obesity. Weight loss recommended. Encounter for wellness examination 09/22/2023 08/16/2024 Assessment & Plan (09/23/2023 2:28 PM CDT): Ordered CBC, cmp, lipid, , HIV, hep c, TSH w/ reflex to t4 Flu given Colonoscopy referral placed Pap smear will get records, completed in the past year Mammo: will get records completed in december Zoster vaccine-will come back for shingles F/u in 1 year for annual Type 2 diabetes mellitus, wi th long-term current use of insulin 01/23/2023 04/18/2023 Assessment & Plan (01/23/2023 4:04 PM REINSURANCE CLAIM ANALYST): Twyla displays insulin resistance, a feature of T2DM, as she is requiring > 1 unit of 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 Abdominal pain 04/22/2022 08/16/2024 Assessment & Plan (04/22/2022 5:28 PM CDT): -Will hold Victoza and follow with her response. -Will check CBC, CMP, amylase and lipase. -If holding Victoza does not improve her symptoms, she will follow up with PCP De Quervain's disease (radia l styloid tenosynovitis) 10/11/2018 08/16/2024 Acute midline thoracic back pain 01/20/2018 08/16/2024 Assessment & Plan (01/26/2018 7:06 AM REINSURANCE CLAIM ANALYST): Will refer to physical therapy. Recommended nsaids over the counter on a regular basis for the next 2-4 weeks. Naproxen 1-2 tablets twice daily. F/u if pain continues despite PT and nsaids. Myofascial pain 05/21/2017 08/16/2024 Urinary urgency 05/21/2017 08/14/2019 Increased frequency of urination 05/21/2017 01/09/2019 Type 1 diabetes mellitus without complication 04/14/20 14 12/28/2017 Overview (03/05/2017): DMI WO CMP UNCNTRLD Hay fever 04/14/2014 08/27/2024 Immunizations Immunization Administration Dates Next Due Influenza, Quadrivalent, Spl it, Intramuscular 08/28/2016,08/28/2016 Influenza, Quadrivalent, Spl it, Preservative Free, Intramuscular 09/23/2023,09/09/2020,09/08/2019,10/17 Influenza, Trivalent, Preser vative Free, Intramuscular 08/16/2024,12/11/2017 Influenza, Unspecified 12/05/2018,2018,08/29/2017,08/29 Moderna SARS-CoV-2 Monovalen t Vaccination (12+ YRS) 11/20/2021 Pfizer SARS-CoV-2 Monovalent Vaccination (12+ Yrs) PURPLE 03/04/2021,03/04/2021,02/09/2021,02/09 Pneumococcal Conjugate Pcv20 05/18/2022 Tdap 02/27/2018,02/27/2018 Social History Tobacco Use Types Packs/Day Years Used Date Smoking Tobacco: Never Smokeless Tobacco: Never Tobacco Cessation:Counseling Given: Not Answered Alcohol Use Standard Drinks/Week Comments No 0 (1 standard drink = 0.6 oz pur e alcohol) AUDIT-C Answer Date Recorded Q1: How often do you have a drink containing alc ohol? Monthly or less 08/16/2024 Q2: How many drinks containi ng alcohol do you have on a typical day when you are drinking? 1 or 2 08/16/2024 Q3: How often do you have si x or more drinks on one occasion? Never 08/16/2024 PHQ-2 Answer Date Recorded PHQ-2 Total Score (If total score is 3 or more points, staff should administer the PHQ-9) 0 08/16/2024 Comments No Sex and Gender Information Value Date Recorded Sex Assigned at Not on file Legal Sex Female 7:34 PM REINSURANCE CLAIM ANALYST Gender Identity Female 09/10/2020 6:16 AM CDT Sexual Orientation Straight 09/10/2020 6: 16 AM CDT Last Filed Vital Signs Vital Sign Reading Time Taken Comments Blood Pressure 108/74 09/27/2024 11:42 AM CDT Pulse 98 09/27/2024 11:42 AM CDT Temperature 36.9 C (98.5 F) 09/27/2024 11:42 AM CDT Respiratory Rate 16 08/16/2024 9:18 AM CDT Oxygen Saturation 96% 08/16/2024 9:18 AM CDT Inhaled Oxygen Concentration - - Weight 87.6 kg (193 lb 3.2 oz) 09/27/2024 11:42 AM CDT Height 162.6 cm (5' 4 ) 09/27/2024 11:42 AM CDT Body Mass Index 33.16 09/27/2024 11:42 AM CDT Plan of Treatment Not on file Procedures Procedure Name Priority Date/Time Associated Diagnosis Comments POCT HEMOGLOBIN A1C Routine 08/16/2024 9 :30 AM CDT Type 1 diabetes mellitus without complication (HCC) DIABETIC EYE EXAM Routine 02/16/2024 3:2 0 PM CDT HEPATITIS C ANTIBODY Routine 02/16/2024 9:30 AM CDT Encounter for wellness examination Need for hepatitis C screening test COMPREHENSIVE METABOLIC PANEL Routine 02/16/2024 9:30 AM CDT Encounter for wellness examination LIPID PANEL WITH REFLEX TO DIRECT LDL Routine 02/16/2024 9:30 AM CDT Encounter for wellness examination ALBUMIN CREATININE RATIO, URINE Routine 02/16/2024 9:28 AM CDT Type 2 diabetes mellitus without complication, with long-term current use of insulin (HCC) COLONOSCOPY Routine 11/17/2023 THYROID FUNCTION CASCADE Routine 08/08/2022 7:25 AM CDT Type 1 diabetes mellitus without complication (HCC) Myalgia Screening for hypothyroidism MAMMOGRAPHY Routine 03/14/2019 PAP SMEAR WITH HPV Routine 01/14/2018 DIABETES FOOT EXAM Routine 06/07/2015 from Last 3 Months or Most Recently Relevant to Health Maintenance Results * (ABNORMAL) POCT hemoglobin A1c (08/16/2024 9:30 AM CDT) Hemoglobin A1C, POC 6.4 4.0 - 5.6 % Capillary blood 08/16/2024 9 :30 AM CDT Khanh Ramsey MD POINT OF CARE TEST BALWINDER GUALLPA Final Result * Diabetic Eye Exam (02/16/2024 3:20 PM CDT) Historical Provider HEALTH MAINTENANCE Final Result * (ABNORMAL) Lipid panel with reflex to direct LDL (02/16/2024 9:30 AM CDT) Cholesterol 142 <200 mg/dL [facility] HDL 42(L) > OR = 50 mg/dL [facility] Triglycerides 94 <150 mg/dL [facility] LDL 81 mg/dL (calc) [facility] Comment: Reference range: <100 Desirable range <100 mg/dL for primary prevention; <70 mg/dL for patients with CHD or diabetic patients with > or = 2 CHD risk factors. LDL-C is now calculated using the Adelina calculation, which is a validated novel method providing better accuracy than the Friedewald equation in the estimation of LDL-C. Emanuel DUARTE et al. MARYJANE. 2013;310(19): 0389-6112 (http://CommunityForce.Pulian Software/faq/ZZT072) Chol/HDL ratio 3.4 <5.0 (calc) [facility] Non-HDL, (LDL+VLDL) 100 <130 mg/dL (calc) [facility] Comment: For patients with diabetes plus 1 major ASCVD risk factor, treating to a non-HDL-C goal of <100 mg/dL (LDL-C of <70 mg/dL) is considered a therapeutic option. Blood 02/16/2024 9:30 AM CDT 02/16/2024 9:31 AM CDT Narrative [facility] - 02/18/2024 12:49 AM CDT FASTING:YES FASTING: YES Result [facility] Sabina Lai MD LAB BLOOD ORDERABLES Final Result [facility] [address] [place] [address] * Hepatitis C antibody Blood (02/16/2024 9:30 AM CDT) Hep C Ab NON-REACTI VE NON-REACT [facility] Comment: HCV antibody was non-reactive. There is no laboratory evidence of HCV infection. In most cases, no further action is required. However, if recent HCV exposure is suspected, a test for HCV RNA (test code 82892) is suggested. For additional information please refer to http://education.[employer] in [employer]/faq/ZNI58u0 (This link is being provided for informational/ educational purposes only.) Blood 02/16/2024 9:30 AM CDT 02/16/2024 9:31 AM CDT Narrative [facility] - 02/18/2024 12:49 AM CDT FASTING:YES FASTING: YES Sabina Lai MD LAB MICROBIOLOGY - CLAIR ORDERABLES Final Result [facility] [address] [address] * (ABNORMAL) Comprehensive metabolic panel (02/16/2024 9:30 AM CDT) Glucose 191(H) 65 - 99 mg/dL [facility] Comment: Fasting reference interval For someone without known diabetes, a glucose value >125 mg/dL indicates that they may have diabetes and this should be confirmed with a follow-up test. BUN 16 7 - 25 mg/dL [facility] Creatinine 0.73 0.50 - 1.03 mg/dL [facility] eGFR 100 > OR = 60 mL/min/1.7 3m2 [facility] BUN/creat ratio SEE NOTE: 6 - 22 (calc) [facility] Comment: Not Reported: BUN and Creatinine are within reference range. Sodium 136 135 - 146 mmol/L [facility] Potassium, pl 4.5 3.5 - 5.3 mmol/L [facility] Chloride 100 98 - 110 mmol/L [facility] CO2 28 20 - 32 mmol/L [facility] Calcium 9.9 8.6 - 10.4 mg/dL [facility] Protein, sr 6.7 6.1 - 8.1 g/dL [facility] Albumin 4.2 3.6 - 5.1 g/dL [facility] GLOBULIN 2.5 1.9 - 3.7 g/dL (calc) [facility] Alb/glob ratio 1.7 1.0 - 2.5 (calc) [facility] Bilirubin, total 0.5 0.2 - 1.2 mg/dL [facility] Alk phos 59 37 - 153 U/L [facility] AST 10 10 - 35 U/L [facility] ALT (SGPT) 10 6 - 29 U/L [facility] Blood 02/16/2024 9:30 AM CDT 02/16/2024 9:31 AM CDT Narrative [facility] - 02/18/2024 12:49 AM CDT FASTING:YES FASTING: YES us Sabina Lai MD LAB BLOOD ORDERABLES Final Result [facility] [address] [place] [address] * Albumin Creatinine Ratio, Urine (02/16/2024 9:28 AM CDT) Creatinine, ur 144 20 - 275 mg/dL [facility] Microalbumin, ur 0.7 See Note: mg/dL [facility] Comment: Reference Range: Reference Range Not established Microalbumin/creat ratio 5 <30 mg/g creat [facility] Comment: The ADA defines abnormalities in albumin excretion as follows: Albuminuria Category Result (mg/g creatinine) Normal to Mildly increased <30 Moderately increased 30-299 Severely increased > OR = 300 The ADA recommends that at least two of three specimens collected within a 3-6 month period be abnormal before considering a patient to be within a diagnostic category. Urine 02/16/2024 9:28 AM CDT 02/16/2024 9:28 AM CDT us Nathalie Fitzgerald MD LAB URINE ORDERABLES Final Resu lt Performing Organization Address City[facility]/ZIP Co de Phone Number [facility] [address] [place] [address] * Colonoscopy (11/17/2023) Anatomical Region Laterality Modality Other us Generic External Data Provider ENDOSCOPY PROCEDU RES Final Result * TSH reflex to free T4 (08/08/2022 7:25 AM CDT) TSH 2.70 mIU/L [facility] Comment: Reference Range > or = 20 Years 0.40-4.50 Ranges First trimester 0.26-2.66 Second trimester 0.55-2.73 Third trimester 0.43-2.91 Blood 08/08/2022 7:25 AM CDT 08/08/2022 7:25 AM CDT Narrative [facility] - 08/09/2022 7:31 AM CDT FASTING:YES FASTING: YES Luiza Bolton NP LAB BLOOD ORDERABLES Final Result [facility] [address] [place] [address] * MAMMOGRAPHY (03/14/2019) Mammogram Normal Comment:Nl per pt, done at [facility] Historical Provider HEALTH MAINTENANCE Final Result * PAP SMEAR WITH HPV (01/14/2018) Pap smear Normal Historical Provider HEALTH MAINTENANCE Final Result * DIABETES FOOT EXAM (06/07/2015) Diabetic Foot Exam Unknown Historical Provider HEALTH MAINTENANCE Final Result from Last 3 Months or Most Recently Relevant to Health Maintenance Insurance Legal Egg OOS Reelation ACCESS OOS Reelation ACCESS OOS Reelation ACCESS OOS Advance Directives For more information, please contact: [phone] * Full Code (Latest Code Status on File) Date Activated Date Inactivated Comments 02/07/2021 7:13 AM 02/08/2021 4:41 AM Care Teams Folder And Notcher Relationship Specialty Start Date End Date Khanh Ramsey MD [address] [place] [address] PCP - General Family Medicine 08/16/24 Filippo Rosales MD [address] [place] [address] Consulting Physician Obstetrics and Gynecology 08/14/19 Nathalie Fitzgerald MD [address] [place] [address] Consulting Physician Endocrinology Diabetes & Metabolism 08/14/19
--- OUTSIDE RECORDS SUMMARY | 2025-03-13 08:47 | XMS_ITS | Clinical Summary ---
Author Organization [facility] Address [address] [place] [address] Care Team Providers Care Custom Garment Designer Name Role Phone Filippo Rosales MD Unavailable [phone] Nathalie Fitzgerald MD Unavailable [phone] Khanh Ramsey MD Primary Care Provider Allergies Active Allergy Reactions Criticality Noted Date Comments Codeine Nausea & Vomiting Low Morphine Hallucinations Medium Penicillin Hives Medium 09/23/2023 Penicillins Hives Medium Medications glucosamine-lona droitin 500-400 mg capsule Take by mouth. Acti ve ONETOUCH DELICA LANCETS [facility] Active potassium gluconate 595 mg (99 [...] Active pen needle, diabetic 31 gauge x /16 needle Use to inject Victoza 1 time [...] inhaler Assessment & Plan (12/01/2022 1:55 PM SELECTOR PACKER): Continue with albuterol inhaler shelter current use of insulin 11/03/2022 Assessment & Plan (01/23/2023 4:03 PM SELECTOR PACKER): Requires close clinical follow up for BG review and insulin titration Abnormal stress echo 01/16/2021 Overview (01/16/2021): Added automatically from request for surgery [id number] Insulin pump in place 01/08/2021 Assessment & Plan (01/23/2023 4:02 PM SELECTOR PACKER): Has good working knowledge of insulin pump use Assessment & Plan (04/16/2021 11:53 AM CDT): Has good working knowledge of insulin pump use Changes as below Assessment & Plan (01/08/2021 1:40 PM SELECTOR PACKER): Has good knowledge of insulin pump use Continue current settings for now Has UTD glucagon pen OAB (overactive bladder) 05/02/2020 Assessment & Plan (09/23/2023 2:23 PM CDT): She cut back on the tea myrbetriq not covered by insurance and oxybutynin no longer works Assessment & Plan (12/01/2022 2:09 PM SELECTOR PACKER): worsening Referral to urology given angeliaiq not covered by insurance and oxybutynin no longer works Assessment & Plan (05/02/2020 3:17 PM CDT): Discussed/ordered labs, Condition is worsening encouraged healthy, low carbohydrate lifestyle and at least 150min/week of exercise, we will start pt on oxybutynin 5mg daily. Push water. 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 08/14/2019 Assessment & Plan (08/27/2024 12:23 AM CDT): - chronic condition, stable status - known conditions of anxiety, depression - currently on sertraline 100 mg daily - also follows/sees a counselor - continue current management Assessment & Plan (09/22/2023 12:53 PM CDT): Stable -SI/HI Report to ER SI or HI occur Continue sertraline 100mg daily NASIR (generalized anxiety disorder) 08/14/2019 Assessment & Plan (08/27/2024 12:23 AM CDT): - chronic condition, stable status - known conditions of anxiety, depression - currently on sertraline 100 mg daily - also follows/sees a counselor - continue current management Assessment & Plan (09/22/2023 12:53 PM CDT): Stable Continue sertraline 100mg daily High risk medication use 08/08/2019 Assessment & Plan (01/08/2021 1:38 PM SELECTOR PACKER): Has CGM, using control IQ insulin pump [...] 08/14/2019 Assessment & Plan (01/23/2023 3:56 PM SELECTOR PACKER): Follow levels and replete accordgingly Assessment & Plan (04/22/2022 5:27 PM CDT): -Repeat level Assessment & Plan (04/16/2021 11:51 AM CDT): Continue to monitor regularly and replete accordingly Assessment & Plan (01/08/2021 1:39 PM SELECTOR PACKER): Check levels Assessment & Plan (05/07/2020 2:10 [...] requirements Assessment & Plan (01/23/2023 4:02 PM SELECTOR PACKER): Will transition GLP-1RA to Mounjaro for more [...] in your mouth on an linda like [employer] Lower carb substitutions: [employer] carries a zero net carb bread If [...] in much longer they will become mushy [place] and/or coconut flour instead of regular flour [...] pork rinds For yogurt, try Two Good khmer yogurt Use Pinterest for recipe ideas. Type in low carb... [...] GLP-1RA Assessment & Plan (01/08/2021 1:38 PM SELECTOR PACKER): Will aim for a low carb diet, food list sent via Skysheet, and discussed apps to track carbs/calories Will [...] recommended Assessment & Plan (01/26/2020 3:34 PM SELECTOR PACKER): Healthy, low carbohydrate lifestyle and exercise for [...] that she should follow up with her BLACK PULLER as her prolapsed vaginal wall may be [...] statin Assessment & Plan (01/23/2023 4:00 PM SELECTOR PACKER): Excellent glycemic control using the current Control-IQ [...] your email and use it when you supervisor opening and picking the medication; they may have to run [...] statin Assessment & Plan (12/01/2022 1:54 PM SELECTOR PACKER): Last a1c was 6.7 Continue following with endocrinology Assessment & Plan (11/03/2022 5:24 PM SELECTOR PACKER): Time in Target Range is 59%, not [...] date Assessment & Plan (01/23/2022 11:30 AM SELECTOR PACKER): -Currently taking Victoza. metformin and using Tandem [...] the following, with written instructions sent via Skysheet: Dose insulin 5-10 minutes prior to meals, [...] statin Assessment & Plan (01/08/2021 1:39 PM SELECTOR PACKER): Improving glycemic control in Control IQ closed loop system Continue current settings for now Continue metformin Aim to decrease daily carbs from 300 --> 200 grams Add Symlin with dinner Upload insulin pump/CGM data in 2 weeks and let me know to review, may need to tighten carb ratio to 1:5.5 Ophtho UTD On statin Labs as below Assessment [...] picture of the log and send via Skysheet or you can fax the glucose log [...] cortisol drawn the following morning 8-10 AM Iman GUARDADO Follow FLP Assessment & Plan (04/13/2019 9:27 [...] 2019. Assessment & Plan (01/13/2019 10:17 AM SELECTOR PACKER): The patient has history of type 1 [...] 08/16/2024 Assessment & Plan (12/14/2023 8:01 AM SELECTOR PACKER): Acute on chronic problem-this is a recurring [...] for annual Type 2 diabetes mellitus, wi long-term current use of insulin 01/23/2023 04/18/2023 Assessment & Plan (01/23/2023 4:04 PM SELECTOR PACKER): Twyla displays insulin resistance, a feature of T2DM, as she is requiring > 1 unit of insulin/kg of body weight daily rock drill operator associated wi adverse incidents 11/03/2022 08/16/2024 Assessment & Plan (11/03/2022 2:45 PM SELECTOR PACKER): She is adept in using and managing [...] 08/16/2024 Assessment & Plan (01/26/2018 7:06 AM SELECTOR PACKER): Will refer to physical therapy. Recommended nsaids [...] WO CMP UNCNTRLD Hay fever 04/14/2014 08/27/2024 Encounters Date Type Department Care Team Description 01/30/2025 9:00 AM SELECTOR PACKER Telemedicine [facility] Endocrinology Metabolism and Lipid [address] [place] [address] [place] [address] Nathalie Fitzgerald MD Type 1 diabetes mellitus [...] (HCC); Mixed hyperlipidemia from Last 3 Months Immunizations Immunization Administration Dates Next Due Influenza, Quadrivalent, Spl it, Intramuscular 08/28/2016,08/28/2016 Influenza, Quadrivalent, Spl it, Preservative Free, Intramuscular 09/23/2023,09/09/2020,09/08/2019,10/17 Influenza, Trivalent, Preser vative Free, Intramuscular 08/16/2024,12/11/2017 Influenza, Unspecified 12/05/2018,2018,08/29/2017,08/29 Moderna SARS-CoV-2 Monovalen t Vaccination (12+ YRS) 11/20/2021 Pfizer SARS-CoV-2 Monovalent Vaccination (12+ Yrs) PURPLE 03/04/2021,03/04/2021,02/09/2021,02/09 Pneumococcal Conjugate Pcv20 05/18/2022 Tdap 02/27/2018,02/27/2018 Surgical History Surgery Date Site/Laterality Comments OTHER SURGICAL HISTORY 11/29/2005 - 11/28/2006 Right shoulder injury: surgery OTHER SURGICAL HISTORY 11/29/2009 - 11/28/2010 Left shoulder injury: surgery SHOULDER SURGERY 11/29/2009 - 11/28/2010 L shoulder surgery SHOULDER SURGERY 11/29/2004 - 11/28/2005 R shoulder surgery LOOP ELECTROSURGICAL EXCISIO N PROCEDURE 11/29/2010 - 11/28/2011 leep ENDOMETRIAL ABLATION 11/29/2009 - 11/28/2010 endometrial ablation OTHER SURGICAL HISTORY 11/29/2004 - 11/28/2005 Carpal tunnel syndrome: R carpal tunnel release CYST REMOVAL 11/29/1993 - 11/28/1994 cyst removed SECTION 11/29/1998 - 11/28/1999 section OTHER SURGICAL HISTORY Left Left elbow surgery / tendon repair SECTION 01/04/1999 TUBAL LIGATION 01/04/1999 COLPOSCOPY Medical History Medical History Date Comments Hx Other Medical 2005 Right shoulder injury; Outcome: resolved Hx Other Medical 2009 Left shoulder i njury; Outcome: resolved Hx Other Medical Carpal tunnel s yndrome Asthma Diabetes mellitus (HCC) Anxiety Abnormal Pap smear of cervix Fibroid Ovarian cyst HPV (human papilloma virus) infection Urinary incontinence Uterine prolapse CTS (carpal tunnel syndrome) Depression Gestational diabetes Family History Medical History Relation Name Comments Diabetes Father Waqar Diabetes mellit us; Hearing loss Father Waqar Hypertension Father Waqar Hypertension; Diabetes type II Other Family hist ory of Diabetes -Type 2; Cancer Sister 1 Gisele Diabetes Sister 1 Gisele Rheum arthritis Sister 1 Gisele Rheumatoid a rthritis; Stroke Sister 1 Gisele Breast cancer Sister 2 Cancer Sister 2 Diabetes Sister 2 Diabetes mellit us; Thyroid disease Sister 3 thyroid diso rder; Relation Name Status Comments Father Waqar Alive Mother Alive Other Sister 1 Gisele Sister 2 Alive Sister 3 Social History Tobacco Use Types Packs/Day Years [...] on file Legal Sex Female 7:34 PM SELECTOR PACKER Gender Identity Female 09/10/2020 6:16 AM CDT Sexual Orientation Straight 09/10/2020 6: 16 AM CDT Obstetrics History Para Term AB IAB SAB Ectopic Multiple Livin g Live Births 3 2 1 1 1 2 Date Outcome GA Total Labor Labor/2nd/3rd Weight Sex Type Anes PTL Marcia A1 A5 Name Clin Term AB Last Filed Vital Signs Vital Sign Reading [...] 09/27/2024 11:42 AM CDT Plan of Treatment Health Maintenance Due Date Last Done Comments Hepatitis B Screening 1990 Zoster Vaccine (1 of 2) 2022 Cervical Cancer Screening 01/14/2023 01/14/2018 TSH Level 08/08/2023 08/08/2022, 04/29, 06/11/2021, Additional history exists Breast Cancer Screening-Mammogram 11/26/2023 11/26/2022, 09/01/2021, 03/14/2019, Additional history exists Regular Well Visit/Exam 18-64 09/23/2024 09/23/2023, 05/18/2022 Hemoglobin A1C 02/13/2025 08/16/2024, 0304/2024, 10/25/2023, Additional history exists Albumin Creatinine Ratio, Urine 02/15/2025 02/16/2024, 05/15/2022, 02/03/2021, Additional history exists Dilated Eye Exam 02/15/2025 02/16/2024, 01/2021, 06/25/2020, Additional history exists Lipid Panel 02/15/2025 02/16/2024, 04/29, 02/03/2021, Additional history exists eGFR 02/15/2025 02/16/2024, 07/30, 05/15/2022, Additional history exists Depression Screening 08/16/2025 08/16/2024, 08/09/2024, 06/15/2024, Additional history exists Foot Exam 09/27/2025 09/27/2024, 04/30, 09/08/2019, Additional history exists DTaP/Tdap/Td Vaccine (3 - Td or Tdap) 02/28/2028 02/27/2018, 02/27/2018 Colon Cancer Screening-Colonoscopy 11/17/20332022 Pneumococcal vaccine <65 Completed 05/18/2022 Hepatitis C Screening Completed 02/16/2024 Influenza Vaccine Completed 08/16/2024, , 09/09/2020, Additional history exists Covid-19 Vaccine Completed 08/18/2024, , 03/04/2021, Additional history exists Procedures Procedure Name Priority Date/Time Associated Diagnosis [...] without complication (HCC) Myalgia Screening for hypothyroidism HM MAMMOGRAPHY Routine 03/14/2019 HM PAP SMEAR WITH HPV Routine 01/14/2018 DIABETES FOOT EXAM Routine 06/07/2015 from Last 3 Months or Most Recently Relevant to Health Maintenance Results * (ABNORMAL) POCT hemoglobin A1c (08/16/2024 9:30 AM CDT) Hemoglobin A1C, POC 6.4 4.0 - 5.6 % Capillary blood 08/16/2024 9 :30 AM CDT Khanh Ramsey MD POINT OF CARE TEST ORDE SALONI Final Result * Diabetic Eye Exam (02/16/2024 3:20 PM CDT) [facility] Provider HEALTH MAINTENANCE Final Result * (ABNORMAL) Lipid panel with reflex to direct LDL (02/16/2024 9:30 AM CDT) Cholesterol 142 <200 mg/dL [facility] HDL 42(L) > OR = 50 mg/dL [facility] Triglycerides 94 <150 mg/dL [facility] LDL 81 mg/dL (calc) [facility] Comment: Reference range: <100 Desirable range <100 mg/dL for primary prevention; <70 mg/dL for patients with CHD or diabetic patients with > or = 2 CHD risk factors. LDL-C is now calculated using the Adelina calculation, which is a validated novel method providing better accuracy than the Friedewald equation in the estimation of LDL-C. Emanuel DUARTE et al. MARYJANE. 2013;310(19): 2042-3055 (http://education.SantoSolve.M[employer]faq/QQW693) Chol/HDL ratio 3.4 <5.0 (calc) [facility] Non-HDL, (LDL+VLDL) 100 <130 mg/dL (calc) [facility] Comment: For patients with diabetes plus 1 major ASCVD risk factor, treating to a non-HDL-C goal of <100 mg/dL (LDL-C of <70 mg/dL) is considered a therapeutic option. Blood 02/16/2024 9:30 AM CDT 02/16/2024 9:31 AM CDT Narrative [facility] - 02/18/2024 12:49 AM CDT FASTING:YES FASTING: YES Sabina Lai MD LAB BLOOD ORDERABLES Final Result Performing Organization Address [facility] Co de Phone Number [facility] [address] [place] [address] * Hepatitis C antibody Blood (02/16/2024 9:30 AM CDT) Hep C Ab NON-REACTI VE NON-REACT MAHI [facility] Comment: HCV antibody was non-reactive. There is no laboratory evidence of HCV infection. In most cases, no further action is required. However, if recent HCV exposure is suspected, a test for HCV RNA (test code 74283) is suggested. For additional information please refer to http://education.Physiq/faq/NMK65f0 (This link is being provided for informational/ educational purposes only.) Blood 02/16/2024 9:30 AM CDT 02/16/2024 9:31 AM CDT Narrative [facility] - 02/18/2024 12:49 AM CDT FASTING:YES FASTING: YES us Sabina Lai MD LAB MICROBIOLOGY - GE NERAL ORDERABLES Final Result Performing Organization Address City/[facility]/ZIP Co de Phone Number [facility] [address] [address] * (ABNORMAL) Comprehensive metabolic panel (02/16/2024 9:30 AM CDT) Glucose 191(H) 65 - 99 mg/dL [facility] Comment: Fasting reference interval For someone without known diabetes, a glucose value >125 mg/dL indicates that they may have diabetes and this should be confirmed with a follow-up test. BUN 16 7 - 25 mg/dL [facility] Creatinine 0.73 0.50 - 1.03 mg/dL [facility] eGFR 100 > OR = 60 mL/min/1.7 3m2 [facility] BUN/creat ratio SEE NOTE: (calc) [facility] Comment: Not Reported: BUN and Creatinine are within reference range. Sodium 136 135 - 146 mmol/L [facility] Potassium, pl 4.5 3.5 - 5.3 mmol/L [facility] Chloride 100 98 - 110 mmol/L [facility] CO2 28 20 - 32 mmol/L [facility] Calcium 9.9 8.6 - 10.4 mg/dL [facility] Protein, sr 6.7 6.1 - 8.1 g/dL [facility] Albumin 4.2 3.6 - 5.1 g/dL [facility] GLOBULIN 2.5 1.9 - 3.7 g/dL (calc) [facility] Alb/glob ratio 1.7 1.0 - 2.5 (calc) [facility] Bilirubin, total 0.5 0.2 - 1.2 mg/dL [facility] Alk phos 59 37 - 153 U/L [facility] AST 10 10 - 35 U/L [facility] ALT (SGPT) 10 6 - 29 U/L [facility] Blood 02/16/2024 9:30 AM CDT 02/16/2024 9:31 AM CDT Narrative [facility] - 02/18/2024 12:49 AM CDT FASTING:YES FASTING: YES Sabina Lai MD LAB BLOOD ORDERABLES Final Result [facility] [address] [place] [address] * Albumin Creatinine Ratio, Urine (02/16/2024 9:28 [...] MD LAB URINE ORDERABLES Final Resu lt [facility] [address] [place] [address] * Colonoscopy (11/17/2023) Anatomical Region Laterality Modality Other us Generic External Data Provider ENDOSCOPY PROCEDU RES Final Result * TSH reflex to free T4 (08/08/2022 7:25 AM CDT) TSH 2.70 mIU/L [facility] Comment: Reference Range > or = 20 Years 0.40-4.50 Ranges First trimester 0.26-2.66 Second trimester 0.55-2.73 Third trimester 0.43-2.91 Blood 08/08/2022 7:25 AM CDT 08/08/2022 7:25 AM CDT Narrative [facility] - 08/09/2022 7:31 AM CDT FASTING:YES FASTING: YES us Luiza Bolton DIRECTOR OF MEDICAL SERVICES LAB BLOOD ORDERABLES Final Result [facility] [address] [address] * MAMMOGRAPHY (03/14/2019) Mammogram Normal Comment:Nl per pt, done at [facility] Historical Provider HEALTH MAINTENANCE Final Result * PAP SMEAR WITH HPV (01/14/2018) Pap smear Normal Historical Provider MD HEALTH MAINTENANCE Final Result * DIABETES FOOT EXAM (06/07/2015) Diabetic Foot Exam Unknown Historical Provider HEALTH MAINTENANCE Final Result from Last 3 Months or Most Recently Relevant to Health Maintenance Insurance [email or web address] O[email or web address] ACCESS [employer]OS [email or web address] OOS Advance Directives For more information, please contact: [phone] * Full Code (Latest Code Status on File) Date Activated Date Inactivated Comments 02/07/2021 7:13 AM 02/08/2021 4:41 AM Care Teams Custom Garment Designer Relationship Specialty Start Date End Date Khanh Ramsey MD [address] [place] [address] [place] [address] PCP - General Family Medicine 08/16/24 Filippo Rosales MD [address] [place] [address] [place] [id number] Consulting Physician Obstetrics and Gynecology 08/14/19 Nathalie Fitzgerald MD [address] [place] [address] [place] [address] Consulting Physician Endocrinology Diabetes & Metabolism 08/14/19
--- OUTSIDE RECORDS SUMMARY | 2025-03-13 08:48 | XMS_ITS | Clinical Summary ---
Author Organization [facility] Address [address] [place] [address] Care Team Providers Care Banner Painter Name Role Phone Unavailable Primary Care Provider Unavailabl e Social History Tobacco Use Types Packs/Day Years Used Date Smoking Tobacco: Never Assessed Comments Unknown Sex and Gender Information Value Date Recorded Sex Assigned at Not on file Legal Sex Female 5:17 PM CDT Gender Identity Not on file Sexual Orientation Not on file Plan of Treatment Health Maintenance Due Date Last Done Comments Cervical Cancer Screening Pa p Smear (Age 30 to 64) Every 3 Years 1972 Colorectal Cancer Screening Colonoscopy (10 Years) 1972 Annual Physical 1975 Hepatitis C 1990 DTaP, Tdap and Td Vaccines ( 1 - Tdap) 1991 Hepatitis B Vaccines (1 of 3 - 19+ 3-dose series) 1991 Cervical Cancer Screening Pa p with HPV Testing (Age 30 to 64) Every 5 Years 2002 Cervical Cancer Screening with HPV 2002 Mammogram Screening 2012 Zoster Vaccines (1 of 2) 2022 COVID-19 Vaccine ( - 2023-2 5 season) 2024 Meningococcal B Vaccine Aged Out No l onger eligible based on patient's age to complete this topic Meningococcal Vaccine Aged Out No adriana keenan eligible based on patient's age to complete this topic Pneumococcal Vaccine: Pediat rics (0 to 5 Years) and At-Risk Patients (6 to 49 Years) Aged Out No longer eligible b ased on patient's age to complete this topic RSV Immunizations Under 20 Months Aged Out No longer eligible based on patient's age to complete this topic
--- OUTSIDE RECORDS SUMMARY | 2025-03-13 08:48 | XMS_ITS | Continuity of Care Document ---
Author Organization [facility] Address [address] [place] [address] [address] [place] [address] Phone Care Team Providers Care Broadcast Operations Engineer Name Role Phone Hawa Morales Unavailable Unavailable Advance Directives Directive Yes / No Effective Date File Name No Information Encounters Encounter Description Practice Location Reason(s) For Visit Diagnoses Date Provider Providers Copied on Encounter [facility], [id number] [place] [address] [address], [place], [place], [id number], [place] tel:[phone] [facility] [place] No Information [phone] Carmen Shaikh. [address] , [address], [place], [address], [place]. tel:[phone] Family History Family Member Type Diagnosis Age At Onset No Information Payers Payer name Insurance type Covered democrat ID Authoriza tion(s) No Information Social History Type Description Quantity Date Captured Comments Sex Female Smoking Status No Information Chief Complaint And Reason For Visit No Information Reason For Referral Reason For Referral No Information History Of Present Illness Encounter Date Complaint History Of Prese nt Illness No Information Functional Status Date Functional Assessmen t No Information Instructions Date Instruction Additional Infor mation No Information Assessments Type Assessment Date No Information Patient Care Teams Name Effective Dates (start - stop) Status Members No Information
== END 2025-03-13 08:30 | disposition home or self-care (01) ==
DX: Z12.31 Encounter for screening mammogram for malignant neoplasm of breast (principal)
CPT/HCPCS: 77063; 77067

== ENCOUNTER 2025-08-29 16:05 | Outpatient (CLI) | payer BC, SELFPAY ==
--- NOTE | ~2025-08-29 | XR_ITS ---
EXAMINATION: XR foot LT min 3V, 08/29/2025 16:23 CDT HISTORY: Pain in left ankle and joints of left foot COMPARISON: No comparisons available. Findings: No acute fracture or malalignment. No significant degenerative changes. Soft tissues unremarkable. Impression: No acute fracture or malalignment. Reviewed, dictated and finalized at location P. Impression: No acute fracture or malalignment.
--- NOTE | ~2025-08-29 | XR_ITS ---
EXAMINATION: XR ankle LT min 3V, 08/29/2025 16:23 CDT HISTORY: Pain in left ankle and joints of left foot COMPARISON: No comparisons available. Findings: No acute fracture or malalignment. No significant degenerative changes. Soft tissues unremarkable. Impression: No acute fracture or malalignment. Reviewed, dictated and finalized at location P. Impression: No acute fracture or malalignment.
== END 2025-08-29 16:06 | disposition home or self-care (01) ==
PROVIDERS: PCP Nurse Practitioner Family; Visit Provider Nurse Practitioner Family
DX: M25.572 Pain in left ankle and joints of left foot (principal)
CPT/HCPCS: 73610; 73630

== ENCOUNTER 2025-09-18 08:11 | Outpatient (CLI) | payer BC, SELFPAY ==
--- OUTSIDE RECORDS SUMMARY | 2024-11-11 16:30 | XMS_ITS ---
Author Organization [facility] Address [facility] [place] [address] [id number] Care Team Providers Care Network Security Architect Name Role Phone Migration, Provider Unavailable Unavailable Allergies Allergen (clinical drug ingredient) Drug/Non Drug Allergy documented on EMR Reaction Allergy Type Onset Date Status Penicillin Unknown Drug Allergy Active REASON FOR VISIT Multum To Medispan Conversion Encounter Medications Medication SIG (Take, Route, Frequency, Duration) Notes Start Date End Date Status Estradiol 0.5 MG Tablet 1 tab(s) orally once a day Active Glucosamine Sulfate 500 MG Tablet 1 tab(s) orally 3 times a day Active NovoLIN R 100 UNIT/ML Solution 0 subcutaneously Active medroxyPROGESTERone Acetate 2.5 MG Tablet 1 tab(s) orally once a day Active Lantus 100 UNIT/ML Solution 0 subcutaneously Active Encounters Encounter Location Date Provider Diagnosis [facility] [place] [address] [place] [address] [phone] 11/11/2024 Provider Migration Plan Of Treatment No Information Progress Notes * Twyla MARSHALL CDOB: [birth year] (54 yo F)Acc No.[id number]:11/11/2024 Patient: Twyla Walker Provider: Kayla bradford Migration :1970 A ge:54 Y S ex:Female Date:11/11/2024 Address:[address] , [facility] Subjective: * Chief Complaints: * M ultum To Medispan Conversion Encounter * Medications: T akingLantus 100 UNIT/ML Solution 0 subcutaneously NovoLIN R 100 UNIT/ML Solution 0 subcutaneously medroxyPROGESTERone Acetate 2.5 MG Tablet 1 tab(s) orally once a day Estradiol 0.5 MG Tablet 1 tab(s) orally once a day Glucosamine Sulfate 500 MG Tablet 1 tab(s) orally 3 times a day Taking Lantus 100 UNIT/ML Solution 0 subcutaneously Taking NovoLIN R 100 UNIT/ML Solution 0 subcutaneously Taking medroxyPROGESTERone Acetate 2.5 MG Tablet 1 tab(s) orally once a day Taking Estradiol 0.5 MG Tablet 1 tab(s) orally once a day Taking Glucosamine Sulfate 500 MG Tablet 1 tab(s) orally 3 times a day * Allergies: P enicillin * Electronic signature of Prov ider Migration on 09/18/2025 at 08:26 AM CDT Sign off status: Pending * Provider: Kayla bradford Migration Date: 01/12/2024 Generated for Chris cummings/Paul/Ritu on: 1 08:26 AM CDT
--- NOTE | ~2025-09-18 | CT_ITS ---
EXAMINATION: CT BRAIN W/O DATE: 09/18/2025 08:42 INDICATION: Headache. Amnesia. TECHNIQUE: Computed tomography (CT) of the head was performed without and with 100 cc Omnipaque 350 intravenous contrast. The dose-length product was 1210.67 mGy-cm. Automated exposure control and iterative reconstruction technique were employed. COMPARISON: No prior studies for comparison. FINDINGS: Normal brain parenchymal volume for age. Normal quiñonez-white differentiation. No acute intracranial hemorrhage, infarction, mass or mass effect. No ventriculomegaly or midline shift. Midline sagittal images demonstrate a normal corpus callosum, craniovertebral junction and sella turcica. Basilar cisterns are patent. No abnormal contrast enhancement. Paranasal sinuses and mastoids are pneumatized. No depressed skull fractures. IMPRESSION: 1. No acute intracranial abnormality. Reviewed, dictated and finalized at location O.
--- OUTSIDE RECORDS SUMMARY | 2025-09-18 08:27 | XMS_ITS | Clinical Summary ---
Author Organization [facility] Address [address] [place] [address] Phone Care Team Providers Care Heddler Name Role Phone Provider, None Primary Care Provider Unavailabl e Medications sertraline (ZOLOFT) 50 MG Tablet Take 50 mg by mouth daily. Active Active Problems No known active problems Family History Relation Name Status Comments Daughter (23) Alive Father Alive Mother Alive Sister 1 Sister 2 Alive Sister 3 Alive Sister 4 Alive Sister 5 Alive Son (30) Alive Social History Tobacco Use Types Packs/Day Years Used Date Smoking Tobacco: Never Smokeless Tobacco: Never Tobacco Cessation:Counseling Given: Not Answered Alcohol Use Standard Drinks/Week Comments Yes 0 (1 standard drink = 0.6 oz pur e alcohol) Occasional Sexually Active Control Partners Comments Not Currently Comments Unknown Sex and Gender Information Value Date Recorded Sex Assigned at Not on file Legal Sex Female 8:37 PM CDT Gender Identity Not on file Sexual Orientation Not on file Plan of Treatment Health Maintenance Due Date Last Done Comments Hepatitis C Virus (HCV) Screening 1972 Mammogram 1972 Hepatitis B Immunization (1 of 3 - 19+ 3-dose series) 1991 Pap Smear 1993 Cervical Cancer Screening (CCS) 2002 HPV/Cotest 2002 Cologuard 2017 Colonoscopy 2017 Colorectal Cancer Screening 2017 Immunochemical Fecal Occult Blood 2017 Zoster Immunization (1 of 2) 2022 Influenza Immunization (#1) 07/30/202508/29, 09/08/2019, 12/05/2018, Additional history exists SARS-COV-2 Immunization ( season) 2025 11/20/2021, 03/04/2021, 02/09/2021 Respiratory Syncytial Virus (RSV) Immunization (Adult) (1 - 1-dose 75+ series) 2047 DTaP/Tdap/Td Immunization Discontinued 02/27/2018 TdaP Immunization Completed 02/27/2018 Pneumococcal Immunization (50+ years) Completed 05/18/2022 Pneumococcal Immunization Combined Discontinued 05/18/2022 Human Papillomavirus (HPV) Immunization Aged Out No longer eligible based on patient's age to complete this topic Meningococcal Immunization (ACWY) Aged Out No longer eligible based on patient's age to complete this topic Rotavirus Immunization Aged Out No lo nger eligible based on patient's age to complete this topic Goals Goal Patient Goal Type Associated Problems Recent Progress Patient-Stated? Author Behavioral Health Behavioral Health On track( 023 8:59 AM OYSTER SORTER) Yes Samir Armendariz PSYD Note: Patient wishes to be assessed for the possibility of ADHD, and to understand the source of her current attention/concentration difficulties. Insurance [facility] Care Teams Heddler Relationship Specialty Start Date End Date Provider, None [place] PCP - General 12/08/22
--- OUTSIDE RECORDS SUMMARY | 2025-09-18 08:27 | XMS_ITS | Patient Health Record ---
Author Organization [facility] Address [address] [facility] [address] [place], [place] [id number] Care Team Providers Care Park Interpretive Specialist Name Role Phone Migration, Provider Unavailable Unavailable Allergies Allergen (clinical drug ingredient) Drug/Non Drug Allergy documented on EMR Reaction Allergy Type Onset Date Status Penicillin Unknown Drug Allergy Active Reason For Referral No Information Medications Medication SIG (Take, Route, Frequency, Duration) [...] Active Encounters Encounter Location Date Provider Diagnosis [facility] [address] [id number] 11/11/2024 Provider Migration Plan Of Treatment No Information Insurance Providers Payer Name Payer Address Payer Phone Subscriber Number Group Number Insured Name Patient Relationship to Insured Coverage Start Date Coverage End Date [place] [facility] [address] [place] [address] [id number] Twyla Marshall Self - patient is the insured Medical (General) History Medical History History ICD Code Pertinent Medical History: H istory of Allergies, Ear problems, Asthma, Diabetes, DM II Surgical History Surgery Date(Month/Year) Rt shoulder Rt hand - carpal tunel L Shoulder L elbow ovarian cyst
--- OUTSIDE RECORDS SUMMARY | 2025-09-18 08:27 | XMS_ITS | Clinical Summary ---
Author Organization [facility] Address [address] [place] [address] Care Team Providers Care Edge Burnisher Name Role Phone Orlando Park MD Primary Care Provider [phone] Source Comments [facility] Affiliates and Associated Physician Practices is amultiple site organization consisting of ambulatory clinics and hospital sitesin [place], [place], [place] and [place]. This disclosure is being madepursuant to the Care Everywhere program and may not contain all information available regarding this patient. Last updated 18.[facility] Allergies Active Allergy Reactions Criticality Noted Date [...] on file Legal Sex Female 8:05 AM PIPE TESTER Gender Identity Not on file Sexual Orientation Not on file Last Filed Vital Signs Vital Sign Reading Time Taken Comments Blood Pressure 118/72 01/04/2018 10:15 AM PIPE TESTER Pulse 90 01/04/2018 10:15 AM PIPE TESTER Temperature - - Respiratory Rate 15 01/04/2018 10:15 AM PIPE TESTER Oxygen Saturation 94% 01/04/2018 10:15 AM PIPE TESTER Inhaled Oxygen Concentration - - Weight 95.3 kg (210 lb) 01/04/2018 9:03 AM PIPE TESTER Height 162.6 cm (5' 4) 01/04/2018 9:03 AM PIPE TESTER Body Mass Index 36.05 01/04/2018 9:03 AM PIPE TESTER Plan of Treatment Health Maintenance Due Date [...] 2022 ZOSTER VACCINE (1 of 2) 2022 DEPRESSION SCREENING 11/29/2024 COVID-19 VACCINE ( - 2023-2 5 season) 2025 INFLUENZA VACCINE (#1) 2025 COLON MONITORING 01/04/2028 01/04/2018, 01/04/2018 COLONOSCOPY [...] ENDOSCOPY, COLON, SCREENING Routine 01/04/2018 9:15 AM PIPE TESTER from Last 3 Months or Most Recently Relevant to Health Maintenance Results * ENDOSCOPY, COLON, SCREENING (01/04/2018 9:15 AM PIPE TESTER) Report Endoscopy POC _ Patient Name: Twyla [...] 1 week. Procedure Code(s): --- Professional --- 66838, Colonoscopy, flexible; diagnostic, including collection of specimen(s) by brushing or washing, when performed (separate procedure) --- Technical --- 98216, Colonoscopy, flexible; diagnostic, including collection of specimen(s) by brushing or washing, when performed (separate procedure) Diagnosis Code(s): --- Professional --- K64.8, Other hemorrhoids K62.5, Hemorrhage of anus and rectum --- Technical --- K64.8, Other hemorrhoids K62.5, Hemorrhage of anus and rectum CPT copyright 2015 [employer]. All rights reserved. The codes documented in this report are preliminary and upon sales representative graphic art review may be revised to meet current compliance requirements. Felipe Sullivan MD 01/04/2018 9:51:35 AM This report has been signed electronically. Number of Addenda: 0 Note Initiated On: 01/04/2018 9:15 AM [facility] ENDOSCOPY 01/04/2018 9:15 AM PIPE TESTER Felipe Sullivan MD GI PROCEDURE ORDERABLES Edited Result - Final [facility] ENDOSCOPY from Last 3 Months or Most Recently Relevant to Health Maintenance Insurance Care Teams Edge Burnisher Relationship Specialty Start Date End Date Orlando Park MD PCP - General Internal Medicine 01/04/18
--- OUTSIDE RECORDS SUMMARY | 2025-09-18 08:27 | XMS_ITS | Patient Health Record ---
Author Organization [facility] [employer] Address [address] [facility] [address] [place] [address] Care Team Providers Care Stock Letterer Name Role Phone [place] Issa Unavailable [phone] Reason For Referral No Information Medications Medication SIG (Take, Route, Frequency, Duration) Notes Start Date End Date Status Mounjaro 5 MG/0.5ML Solution Pen-injector Subcutaneous *Reorder from [facility] for eRx and Interaction Alerts* Active Pravastatin Sodium 10 MG Tablet Oral Active metFORMIN HCl 500 MG Tablet Oral Active VICTOZA 2-ROLANDO 0.6 mg/0.1 mL (18 mg/3 mL) Solution Pen-injector Subcutaneous *Reorder from [facility] for eRx and Interaction Alerts* Active NovoLOG 100 UNIT/ML Solution Subcutaneous Active Ozempic (0.25 or 0.5 MG/DOSE) 2 MG/3ML Solution Pen-injector Subcutaneous *Pick strength-form from [facility] for eRX* Active Estradiol 0.01 % (0.1 mg/gram) Cream Vaginal *Pick strength-form from [facility] for eRX* Active Mounjaro 7.5 MG/0.5ML Solution Pen-injector Subcutaneous *Reorder from [facility] for eRx and Interaction Alerts* Active ProAir HFA 108 (90 Base) MCG/ACT Aerosol Solution Inhalation Active Mounjaro 2.5 MG/0.5ML Solution Pen-injector Subcutaneous *Reorder from [facility] for eRx and Interaction Alerts* Active Mounjaro 10 MG/0.5ML Solution Pen-injector Subcutaneous *Reorder from [facility] for eRx and Interaction Alerts* Active Doxycycline Hyclate 100 MG Capsule Oral Active Sertraline HCl 100 MG Tablet Oral Active Social History Social History Additional Details Category Social Info Options Details Migrated Social History Migrated Social History Tobacco Years: Never smoker 09/30/2023 Plan Of Treatment No Information
--- OUTSIDE RECORDS SUMMARY | 2025-09-18 08:27 | XMS_ITS | Clinical Summary ---
Author Organization [facility] Address [address] [place] [address] Care Team Providers Care Quality Engineering Manager Name Role Phone Filippo Rosales MD Unavailable [phone] Nathalie Fitzgerald MD Unavailable [phone] Khanh Ramsey MD Primary Care Provider Allergies Active Allergy Reactions Criticality Noted Date Comments Codeine Nausea & Vomiting Low Morphine Hallucinations Medium Penicillins Hives Medium Medications glucosamine-cho ndroitin 500-400 mg capsule Take by mouth. Activ e ONETOUCH DELICA LANCETS 33 gauge misc 12/31/19 18 Active potassium gluconate 595 mg (99 mg) tablet extended release Take by mouth 4 (four) times a day Active magnesium gluconate (MAGONATE) 27.5 mg magne- sium (500 mg) tabletIndicatio ns:hypomagnesem ia Take 1 tablet (500 mg total) by mouth daily Active pen needle, diabetic 31 gauge x 5/16 needleIndicatio ns:Type 1 diabetes mellitus without complication USE TO INJECT INSULIN 4 TIMES PER DAY 100 each 14 05/15/20 20 Active blood-glucose meter kit One Touch Verio Reflect - Use to test blood sugar as directed. 1 each 10/01/20 20 Active aspirin 81 mg enteric coated tablet Take 1 tablet (81 mg total) by mouth daily 30 tablet 11 02/05/20 21 Active naproxen (NAPROSYN) 500 mg tablet Take 1 tablet (500 mg total) by mouth 2 (two) times a day as needed (pain or swelling) 20 tablet 06/11/20 21 Active pen needle, diabetic 31 gauge x 02/11 needle Use to inject Victoza 1 time per day. 100 each 2 04/22/20 22 Active albuterol 2.5 mg /3 mL (0.083 %) nebulizer solution INHALE 3 ML BY NEBULIZATION EVERY 6 HOURS NEEDED FOR WHEEZING 75 mL 06/01/20 24 Active insulin aspart (NovoLOG) 100 unit/mL vial for injectionIndica tions:Type 1 diabetes mellitus without complication INJECT UP TO 110 UNITS PER DAY VIA INSULIN PUMP DIRECTED 100 mL 3 07/03/20 24 Active atomoxetine (STRATTERA) 80 mg capsule TAKE 1 CAPSULE BY MOUTH EVERY DAY IN THE MORNING FOR 90 DAYS Active fluticasone propionate (FLONASE) 50 mcg/actuation nasal spray SPRAY 2 SPRAYS INTO EACH NOSTRIL DAILY -AFTER 1 WEEK MAY USE 1-2 SPRAY INTO EACH NOSTRIL DAILY Active vitamin E 400 unit capsule Take 1 capsule every day by oral route. 07/10/20 24 Active sertraline (ZOLOFT) 100 mg tabletIndicatio ns:NASIR (generalized anxiety disorder),Mild episode of recurrent major depressive disorder Take 1 tablet (100 mg total) by mouth daily 90 tablet 3 08/16/20 24 Active propranoloL (INDERAL) 10 mg tablet 08/31/20 24 Active estradioL (Estrace) 0.01 % (0.1 mg/gram) vaginal cream Insert one gram vaginally 2 times per week (such as Wednesday/ ) 42.5 g 1 09/11/20 24 Active Additional Information Patient not taking.Reported on 05/31/2025 glucagon (Baqsimi) 3 mg/actuation spray,non-aeros ol Administer 1 spray (3 mg total) into one nostril as needed (for use in case of emergency for hypoglycemia) 1 each 2 09/27/20 24 Active pravastatin (PRAVACHOL) 20 mg tabletIndicatio ns:Mixed hyperlipidemia, Type 1 diabetes mellitus without complication Take 1 tablet (20 mg total) by mouth daily 90 tablet 03/14/20 25 Active tirzepatide (Mounjaro) 10 mg/0.5 mL pen injector injectionIndica tions:Type 2 diabetes mellitus without complication, with long-term current use of insulin (HCC) Inject 0.5 mL (10 mg total) under the skin every 7 days 2 mL 3 03/21/20 25 Active albuterol HFA (PROVENTIL HFA,VENTOLIN HFA,PROAIR HFA) 90 mcg/actuation inhalerIndicati ons:Mild persistent asthma without complication INHALE 2 PUFFS EVERY 4 HOURS NEEDED FOR SHORTNESS OF BREATH. 6.7 each 2 04/16/20 25 Active glucosamine sulfate 500 mg tablet every 8 hours Active dextroamphetami ne-amphetamine XR (ADDERALL XR) 15 mg 24 hr capsule Take 1 capsule (15 mg total) by mouth every morning Active trospium XR (SANCTURA XR) 60 mg capsule,extende d release 24hrIndications :Mixed stress and urge urinary incontinence Take 1 capsule (60 mg total) by mouth daily 90 capsule 1 05/31/20 25 Active metFORMIN (GLUCOPHAGE) 500 mg tabletIndicatio ns:Type 1 diabetes mellitus without complication TAKE 2 TABLETS BY MOUTH TWICE A DAY WITH MEALS 360 tablet 07/06/20 25 Active Dexcom G7 Sensor deviceIndicatio ns:Type 1 diabetes mellitus without complication DEXCOM G7. CHANGE EVERY 10 DAYS 9 each 1 08/01/20 25 Active LYUMJEV 100 unit/mL vial for injectionIndica tions:Type 1 diabetes mellitus without complication INJECT UP TO 110 UNITS VIA INSULIN PUMP PER DAY DIRECTED 100 mL 3 08/01/20 25 Active gabapentin (NEURONTIN) 100 mg capsule TAKE 1 CAPSULE BY MOUTH BEFORE BEDTIME AND INCREASE BY 1 CAPSULE EVERY 3 DAYS TO MAXIMUM 600MG (6 CAPSULES) PER DAY 180 capsule 08/20/20 25 Active gabapentin (NEURONTIN) 100 mg capsule TAKE 1 CAPSULE ONE HOUR BEFORE BEDTIME AND INCREASE BY 1 CAPSULE (100 MG) EVERY 3 DAYS TO A MAXIMUM DOSE OF 600 MG 180 capsule 07/23/20 25 2024 Discontinued Active Problems Problem Noted Date Diagnosed Date Vasomotor symptoms due to menopause 04/16/2025 Incomplete uterovaginal prolapse 08/18/2024 Mixed stress and [...] inhaler Assessment & Plan (12/01/2022 1:55 PM DIRECTOR OF HOUSING AND ENERGY SERVICES): Continue with albuterol inhaler [facility] current use of insulin 11/03/2022 Assessment & Plan (01/23/2023 4:03 PM DIRECTOR OF HOUSING AND ENERGY SERVICES): Requires close clinical follow up for BG review and insulin titration Abnormal stress echo 01/16/2021 Overview (01/16/2021): Added automatically from request for surgery [id number] Insulin pump in place 01/08/2021 Assessment & Plan (01/23/2023 4:02 PM DIRECTOR OF HOUSING AND ENERGY SERVICES): Has good working knowledge of insulin pump use Assessment & Plan (04/16/2021 11:53 AM CDT): Has good working knowledge of insulin pump use Changes as below Assessment & Plan (01/08/2021 1:40 PM DIRECTOR OF HOUSING AND ENERGY SERVICES): Has good knowledge of insulin pump use Continue current settings for now Has UTD glucagon pen OAB (overactive bladder) 05/02/2020 Assessment & Plan (09/23/2023 2:23 PM CDT): She cut back on the tea myrbetriq not covered by insurance and oxybutynin no longer works Assessment & Plan (12/01/2022 2:09 PM DIRECTOR OF HOUSING AND ENERGY SERVICES): worsening Referral to urology given myrbetriq not covered by insurance and oxybutynin no longer works Assessment & Plan (05/02/2020 3:17 PM CDT): Discussed/ordered labs, Condition is worsening encouraged healthy, low carbohydrate lifestyle and at least 150min/week of exercise, we will start pt on oxybutynin 5mg daily. Push water. Discussed with patient that she should follow up with her URGENT CARE TECHNICIAN as her prolapsed vaginal wall may be [...] statin Assessment & Plan (12/01/2022 1:53 PM DIRECTOR OF HOUSING AND ENERGY SERVICES): Continue pravastatin stable Assessment & Plan (07/20/2022 [...] panel Assessment & Plan (01/23/2022 11:30 AM DIRECTOR OF HOUSING AND ENERGY SERVICES): -Last LDL was 77 in January 2021 -Will continue statin as it is being tolerated without side effects Assessment & Plan (04/16/2021 11:53 AM CDT): Continue statin and follow lipids Assessment & Plan (01/08/2021 1:40 PM DIRECTOR OF HOUSING AND ENERGY SERVICES): Continue statin Check FLP Mild episode of [...] 08/08/2019 Assessment & Plan (01/08/2021 1:38 PM DIRECTOR OF HOUSING AND ENERGY SERVICES): Has CGM, using control IQ insulin pump [...] 08/14/2019 Assessment & Plan (01/23/2023 3:56 PM DIRECTOR OF HOUSING AND ENERGY SERVICES): Follow levels and replete accordgingly Assessment & Plan (04/22/2022 5:27 PM CDT): -Repeat level Assessment & Plan (04/16/2021 11:51 AM CDT): Continue to monitor regularly and replete accordingly Assessment & Plan (01/08/2021 1:39 PM DIRECTOR OF HOUSING AND ENERGY SERVICES): Check levels Assessment & Plan (05/07/2020 2:10 [...] comorbidity and body mass index (BMI) of 33.0 to 33.9 in adult 05/26/2018 Assessment & Plan (08/16/2024 [...] requirements Assessment & Plan (01/23/2023 4:02 PM DIRECTOR OF HOUSING AND ENERGY SERVICES): Will transition GLP-1RA to Mounjaro for more [...] in your mouth on an linda like [employer] Lower carb substitutions: [employer] carries a zero [...] in much longer they will become mushy Benge and/or coconut flour instead of regular flour [...] pork rinds For yogurt, try Two Good swedish yogurt Use Pintermarciano for recipe ideas. Type in low carb... [...] GLP-1RA Assessment & Plan (01/08/2021 1:38 PM DIRECTOR OF HOUSING AND ENERGY SERVICES): Will aim for a low carb diet, food list sent via Partschannel, and discussed apps to track carbs/calories Will [...] recommended Assessment & Plan (01/26/2020 3:34 PM DIRECTOR OF HOUSING AND ENERGY SERVICES): Healthy, low carbohydrate lifestyle and exercise for [...] that she should follow up with her URGENT CARE TECHNICIAN as her prolapsed vaginal wall may be [...] statin Assessment & Plan (01/23/2023 4:00 PM DIRECTOR OF HOUSING AND ENERGY SERVICES): Excellent glycemic control using the current Control-IQ [...] your email and use it when you picker machine operator the medication; they may have to run [...] statin Assessment & Plan (12/01/2022 1:54 PM DIRECTOR OF HOUSING AND ENERGY SERVICES): Last a1c was 6.7 Continue following with endocrinology Assessment & Plan (11/03/2022 5:24 PM DIRECTOR OF HOUSING AND ENERGY SERVICES): Time in Target Range is 59%, not [...] date Assessment & Plan (01/23/2022 11:30 AM DIRECTOR OF HOUSING AND ENERGY SERVICES): -Currently taking Victoza. metformin and using Tandem [...] the following, with written instructions sent via Partschannel: Dose insulin 5-10 minutes prior to meals, [...] statin Assessment & Plan (01/08/2021 1:39 PM DIRECTOR OF HOUSING AND ENERGY SERVICES): Improving glycemic control in Control IQ closed [...] picture of the log and send via Partschannel or you can fax the glucose log [...] [facility] the [facility] Assessment & Plan (04/13/2019 9:27 [...] 2019. Assessment & Plan (01/13/2019 10:17 AM DIRECTOR OF HOUSING AND ENERGY SERVICES): The patient has history of type 1 [...] 08/16/2024 Assessment & Plan (12/14/2023 8:01 AM DIRECTOR OF HOUSING AND ENERGY SERVICES): Acute on chronic problem-this is a recurring [...] 04/18/2023 Assessment & Plan (01/23/2023 4:04 PM DIRECTOR OF HOUSING AND ENERGY SERVICES): Twyla displays insulin resistance, a feature of T2DM, as she is requiring > 1 unit of insulin/kg of body weight daily guest experience manager associated wi th adverse incidents 11/03/2022 08/16/2024 Assessment & Plan (11/03/2022 2:45 PM DIRECTOR OF HOUSING AND ENERGY SERVICES): She is adept in using and managing [...] 08/16/2024 Assessment & Plan (01/26/2018 7:06 AM DIRECTOR OF HOUSING AND ENERGY SERVICES): Will refer to physical therapy. Recommended nsaids [...] Free, Intramuscular 08/16/2024,12/11/2017 Influenza, Unspecified 12/05/2018,2018,08/29/2017,08/29 Moderna Sars-cov-2 Monovalen t Booster Vaccination .25 Ml dose (12+ YRS) 11/20/2021 Pfizer SARS-CoV-2 Monovalent Vaccination [...] Carpal tunnel s yndrome Asthma Diabetes mellitus Anxiety Abnormal Pap smear of cervix Fibroid Ovarian cyst HPV (human papilloma virus) infection Urinary incontinence Uterine prolapse CTS (carpal tunnel syndrome) Depression Gestational diabetes Family History Medical History Relation Name Comments Diabetes Father Dad Diabetes mellit us; Hearing loss Father Dad Hypertension Father Dad Hypertension; Diabetes type II Other Family hist ory of Diabetes -Type 2; Cancer Sister 1 Gisele Diabetes Sister 1 Gisele Rheum arthritis Sister 1 Gisele Rheumatoid a rthritis; Stroke Sister 1 Gisele Breast cancer Sister 2 Ophelia Cancer Sister 2 Ophelia Diabetes Sister 2 Ophelia Diabetes mellit us; Thyroid disease Sister 3 thyroid diso rder; Relation Name Status Comments Father Dad Alive Mother Alive Other Sister 1 Gisele Sister 2 Ophelia Alive Sister 3 Social History Tobacco Use [...] on file Legal Sex Female 7:34 PM DIRECTOR OF HOUSING AND ENERGY SERVICES Gender Identity Female 09/10/2020 6:16 AM CDT Sexual Orientation Straight 09/10/2020 6: 16 AM CDT Obstetrics History Para Term AB IAB SAB Ectopic Multiple Livin g Live Births 3 2 1 1 1 2 Date Outcome GA Total Labor Labor//3rd Weight Sex Type Anes PTL Marcia A1 A5 Name Clin Term AB Last Filed Vital Signs Vital Sign Reading Time Taken Comments Blood Pressure 116/77 05/31/2025 4:05 PM CDT Pulse 98 09/27/2024 11:42 AM CDT Temperature 36.9 C (98.5 F) 09/27/2024 11:42 AM CDT Respiratory Rate 16 08/16/2024 9:18 AM CDT Oxygen Saturation 96% 08/16/2024 9:18 AM CDT Inhaled Oxygen Concentration - - Weight 85 kg (187 lb 6.4 oz) 05/31/2025 4:05 PM CDT Height 162.6 cm (5' 4) 05/31/2025 4:05 PM CDT Body Mass Index 32.17 05/31/2025 4:05 PM CDT Plan of Treatment Health Maintenance Due Date Last Done Comments Hepatitis B Screening 1990 Cervical Cancer Screening 01/14/2023 01/14/2018 Breast Cancer Screening-Mammogram 11/26/2023 11/26/2022, 09/01/2021, 03/14/2019, Additional history exists Regular Well Visit/Exam 18-64 09/23/2024 09/23/2023, 05/18/2022 Dilated Eye Exam 02/15/2025 02/16/2024, 01/2021, 06/25/2020, Additional history exists Zoster Vaccine (2 of 2) 06/20/2025 04/25/2025 Influenza Vaccine (#1) 2025 , 09/23/2023, 09/09/2020, Additional history exists Depression Screening 08/16/2025 08/16/2024, 08/09/2024, 06/15/2024, Additional history exists Foot Exam 09/27/2025 09/27/2024, 04/30, 09/08/2019, Additional history exists Hemoglobin A1C 10/28/2025 04/27/2025, 07/30, 02/22/2024, Additional history exists Albumin Creatinine Ratio, Urine 04/27/2026 04/27/2025, 02/16/2024, 05/15/2022, Additional history exists Lipid Panel 04/27/2026 04/27/2025, 01/28, 05/15/2022, Additional history exists TSH Level 04/27/2026 04/27/2025, 07/30, 05/15/2022, Additional history exists eGFR 04/27/2026 04/27/2025, 01/28, 08/08/2022, Additional history exists DTaP/Tdap/Td Vaccine (3 - Td or Tdap) 02/28/2028 02/27/2018, 02/27/2018 Colon Cancer Screening-Colonoscopy 11/17/20332022 Pneumococcal vaccine <65 Completed 05/18/2022 Hepatitis C Screening Completed 02/16/2024 Covid-19 Vaccine Completed 08/18/2024, , 03/04/2021, Additional history exists Procedures Procedure Name Priority Date/Time Associated Diagnosis Comments COMPREHENSIVE METABOLIC PANEL Routine 04/27/2025 9:11 AM CDT HEMOGLOBIN A1C Routine 04/27/2025 9:11 AM CDT Type 1 diabetes mellitus without complication (HCC) LIPID PANEL Routine 04/27/2025 9:11 AM CDT Screening for hyperlipidemia ALBUMIN CREATININE RATIO, URINE Routine 04/27/2025 9:11 AM CDT Type 1 diabetes mellitus without complication (HCC) TSH Routine 04/27/2025 9:11 AM CDT Screening for hypothyroidism DIABETIC EYE EXAM Routine 02/16/2024 3:2 0 PM CDT HEPATITIS C ANTIBODY Routine 02/16/2024 9:30 AM CDT Encounter for wellness examination Need for hepatitis C screening test COLONOSCOPY Routine 11/17/2023 HM MAMMOGRAPHY Routine 03/14/2019 HM PAP SMEAR WITH HPV Routine 01/14/2018 HM DIABETES FOOT EXAM Routine 06/07/2015 from Last 3 Months or Most Recently Relevant to Health Maintenance Results * Albumin Creatinine Ratio, Urine (04/27/2025 9:11 AM CDT) Creatinine, ur 123 20 - 275 mg/dL [facility] Microalbumin, ur 0.4 See Note: mg/dL [facility] Comment: Reference Range: Reference Range Not established Microalbumin/creat ratio 3 <30 mg/g creat [facility] Comment: [...] to be within a diagnostic category. Urine 04/27/2025 9:11 AM CDT 04/27/2025 9:12 AM CDT us Nathalie Fitzgerald MD LAB URINE ORDERABLES Final Resu lt [facility] [address] [place] [address] * TSH (04/27/2025 9:11 AM CDT) TSH 2.43 mIU/L [facility] Comment: Reference Range > or = 20 Years 0.40-4.50 Ranges First trimester 0.26-2.66 Second trimester 0.55-2.73 Third trimester 0.43-2.91 Blood 04/27/2025 9:11 AM CDT 04/27/2025 9:12 AM CDT Nathalie Fitzgerald MD LAB BLOOD ORDERABLES Final Resu lt Performing Organization Address [facility] Co de Phone Number [facility] [address] [place] [address] * (ABNORMAL) Hemoglobin A1c (04/27/2025 9:11 AM CDT) Hgb A1C 6.7(H) <5.7 % of total Hgb [facility] Comment: For someone without known diabetes, a hemoglobin A1c value of 6.5% or greater indicates that they may have diabetes and this should be confirmed with a follow-up test. For someone with known diabetes, a value <7% indicates that their diabetes is well controlled and a value greater than or equal to 7% indicates suboptimal control. A1c targets should be individualized based on duration of diabetes, age, comorbid conditions, and other considerations. Currently, no consensus exists regarding use of hemoglobin A1c for diagnosis of diabetes for children. Blood 04/27/2025 9:11 AM CDT 04/27/2025 9:12 AM CDT Nathalie Fitzgerald MD LAB BLOOD ORDERABLES Final Resu lt Performing Organization Address [facility] Co de Phone Number [facility] [address] [place] [address] * Lipid panel (04/27/2025 9:11 AM CDT) Cholesterol 136 <200 mg/dL [facility] HDL 50 > OR = 50 mg/dL [facility] Triglycerides 129 <150 mg/dL [facility] LDL 65 mg/dL (calc) [facility] Comment: Reference range: <100 Desirable range <100 mg/dL for primary prevention; <70 mg/dL for patients with CHD or diabetic patients with > or = 2 CHD risk factors. LDL-C is now calculated using the Adelina calculation, which is a validated novel method providing better accuracy than the Friedewald equation in the estimation of LDL-C. Emanuel DUARTE et al. MARYJANE. 2013;310(12): 2060-1242 (http://education.EximForce/faq/ZPR599) Chol/HDL ratio 2.7 <5.0 (calc) [facility] Non-HDL, (LDL+VLDL) 86 <130 mg/dL (calc) [facility] Comment: For patients with diabetes plus 1 major ASCVD risk factor, treating to a non-HDL-C goal of <100 mg/dL (LDL-C of <70 mg/dL) is considered a therapeutic option. Blood 04/27/2025 9:11 AM CDT 04/27/2025 9:12 AM CDT us Nathalie Fitzgerald MD LAB BLOOD ORDERABLES Final Resu lt [facility] [address] [place] [address] * (ABNORMAL) Comprehensive metabolic panel (04/27/2025 9:11 AM CDT) Pathologist [facility] Glucose 187(H) 65 - 99 mg/dL [facility] Comment: Fasting reference interval For someone without known diabetes, a glucose value >125 mg/dL indicates that they may have diabetes and this should be confirmed with a follow-up test. BUN 14 7 - 25 mg/dL [facility] Creatinine 0.69 0.50 - 1.03 mg/dL [facility] eGFR 104 > OR = 60 mL/min/1.7 3m2 [facility] BUN/creat ratio SEE NOTE: 6 - 22 (calc) [facility] Comment: Not Reported: BUN and Creatinine are within reference range. Sodium 139 135 - 146 mmol/L [facility] Potassium, pl 4.6 3.5 - 5.3 mmol/L [facility] Chloride 102 98 - 110 mmol/L [facility] CO2 29 20 - 32 mmol/L [facility] Calcium 9.8 8.6 - 10.4 mg/dL [facility] Protein, sr 6.6 6.1 - 8.1 g/dL [facility] Albumin 4.3 3.6 - 5.1 g/dL [facility] GLOBULIN 2.3 1.9 - 3.7 g/dL (calc) [facility] Alb/glob ratio 1.9 1.0 - 2.5 (calc) [facility] Bilirubin, total 0.4 0.2 - 1.2 mg/dL [facility] Alk phos 68 37 - 153 U/L [facility] AST 7(L) 10 - 35 U/L [facility] ALT (SGPT) 9 6 - 29 U/L [facility] 04/27/2025 9:11 AM CDT 04/27/2025 9:12 AM CDT Nathalie Fitzgerald MD LAB BLOOD ORDERABLES Final Resu lt [facility] [address] [facility] [place] [address] * Diabetic Eye Exam (02/16/2024 3:20 PM CDT) Historical Provider HEALTH MAINTENANCE Final Result * Hepatitis C antibody Blood (02/16/2024 9:30 AM CDT) Hep C Ab NON-REACTI VE NON-REACT MAHI [facility] Comment: HCV antibody was non-reactive. There is no laboratory evidence of HCV infection. In most cases, no further action is required. However, if recent HCV exposure is suspected, a test for HCV RNA (test code 63128) is suggested. For additional information please refer to http://education.Beamz Interactive.MarkTend/faq/GZT38b4 (This link is being provided for informational/ educational purposes only.) Blood 02/16/2024 9:30 AM CDT 02/16/2024 9:31 AM CDT Narrative [facility] - 02/18/2024 12:49 AM CDT FASTING:YES FASTING: YES Sabina Lai MD LAB MICROBIOLOGY - GE NERAL ORDERABLES Final Result [facility] [address] [place] [address] * Colonoscopy (11/17/2023) Anatomical Region Laterality Modality Other Generic External Data Provider ENDOSCOPY PROCEDU RES Final Result * MAMMOGRAPHY (03/14/2019) Mammogram Normal Comment:Nl per pt, done at [facility] Historical Provider HEALTH MAINTENANCE Final Result * PAP SMEAR WITH HPV (01/14/2018) Pap smear Normal Historical Provider MD HEALTH MAINTENANCE Final Result * DIABETES FOOT EXAM (06/07/2015) Diabetic Foot Exam Unknown Historical Provider HEALTH MAINTENANCE Final Result from Last 3 Months or Most Recently Relevant to Health Maintenance Insurance [place] [employer] Advance Directives For more information, please contact: [phone] * Full Code (Latest Code Status on File) Date Activated Date Inactivated Comments 02/07/2021 7:13 AM 02/08/2021 4:41 AM Care Teams Quality Engineering Manager Relationship Specialty Start Date End Date Khanh Ramsey MD [address] [place] [address] [place] [id number] PCP - General Family Medicine 08/16/24 Filippo Rosales MD [address] [place] [address] [place] [id number] Consulting Physician Obstetrics and Gynecology 08/14/19 Nathalie Fitzgerald MD [address] [place] [address] [place] [id number] Consulting Physician Endocrinology Diabetes & Metabolism 08/14/19
[2025-09-18 08:37] LABS: Estimated Glomerular Filt Rate > 60
== END 2025-09-18 08:12 | disposition home or self-care (01) ==
PROVIDERS: PCP Nurse Practitioner Family; Visit Provider Nurse Practitioner Family
DX: R41.3 Other amnesia (principal); R51.9 Headache, unspecified
CPT/HCPCS: 70470; Q9967